=== PATIENT | female | born 1960 | race African-American/Black ===

== ENCOUNTER 2025-09-05 07:09 | Emergency (ER) | payer MEDICARE, MEDICAID ==
[~2025-09-05] VITALS: Ht 160 cm; Wt 88.3 kg
--- NOTE | 2025-09-05 08:09 | DVH ---
CHEST RADIOGRAPH Indication: fall Technique: XY L RIB X RAY Comparison: None FINDINGS: The cardiac silhouette is unremarkable. The lungs demonstrate no pulmonary airspace consolidation. Th e pulmonary vasculature is prominent. There is no pleural effusion. There is no pneumothorax. No radiographic evidence for left rib fracture. IMPRESSION: Pulmonary vasculature congestion.
[2025-09-05] MEDS ORDERED: HYDR-4798 PO (08:25)
--- NOTE | 2025-09-05 08:28 | ED.PDOC ---
Back pain HPI HPI Comments A 65 YEAR OLD FEMALE PRESENTS TO THE ED WITH COMPLAINT OF RIB PAIN. PT STATES SHE WAS RUNNING 2X DAYS PRIOR AND FELL ON THE L SIDE OF HER CHEST. PT STATES SINCE, SHE HAS BEEN HAVING L SIDED RIB PAIN WITH NOTED EXACERBATION OF PAIN WITH MOVEMENT AND TAKING DEEP BREATHS. PT TOOK PAIN MEDICATIONS WITH NO RELIEF OF PAIN. ALSO, PT DID NOT TAKE HER BLOOD PRESSURE MEDICATION THIS MORNING AND HER BLOOD PRESSURE IS HIGH AT THIS TIME. PATIENT DENIES FEVER, CHILLS, SHORTNESS OF BREATH, CHEST PAIN, ABDOMINAL PAIN, NAUSEA, VOMITING, HEADACHE, OR OTHER COMPLAINTS. NO OTHER SYMPTOMS OR MODIFYING FACTORS AT THIS TIME. PATIENT IS ALERT, ORIENTED X 4, AND HAS STEADY GAIT. Chief Complaint: Rib Pain Time Seen by MD: 08:23 Reviewed Notes: Medications, Allergies Allergies: Uncoded Allergies: PENICILLIN (Allergy, Unknown, 09/05/25) Home Meds Active Scripts Hydrocodone-Acetaminophen (Hydrocodone Bitartrate/AC 10-325 mg) 1 Tab Tab, 1 TAB PO BID, #14 TAB Prov:CONSTANCE CAMPOS 09/05/25 Information Source: Patient Mode of Arrival: Ambulatory Brought in by: SELF Timing: Days Duration: Since onset Location of Back pain: Other (LEFT MIDDLE RIBS P[AIN ) Severity: Moderate Prehospital treatment: None Quality: Aching, Cramping, Sharp Onset: Fall Modifying Factors: Movement, Twisting, Breathing Associated signs and symptoms: None Past Medical History PAST MEDICAL HISTORY: HTN Surgical History: Denies all surgeries 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 Hx Family History Family History: Reviewed,noncontributory to illness Social History Smoker: Non-Smoker Alcohol: Denies ETOH Use Drugs: Denies Drug Use Constitutional: denies: chills, diaphoresis, fatigue, fever, malaise, sweats, weakness, others EENTM: denies: blurred vision, double vision, ear bleeding, ear discharge, ear drainage, ear pain, ear ringing, eye pain, eye redness, hearing loss, mouth pain, mouth swelling, nasal discharge, nose bleeding, nose congestion, nose pain, photophobia, tearing, throat pain, throat swelling, voice changes, others Respiratory: denies: cough, hemoptysis, orthopnea, SOB at rest, shortness of breath, SOB with excertion, stridor, wheezing, others Cardiovascular: denies: chest pain, dizzy spells, diaphoresis, Dyspnea on exertion, edema, irregular heart beat, left arm pain, lightheadedness, palpitations, PND, syncope, others Gastrointestinal: denies: abdomen distended, abdominal pain, blood streaked bowels, constipated, diarrhea, dysphagia, difficulty swallowing, hematemesis, melena, nausea, poor appetite, poor fluid intake, rectal bleeding, rectal pain, vomiting, others Genitourinary: denies: abnormal vagina bleeding, burning, dyspareunia, dysuria, flank pain, frequency, hematuria, incontinence, pain, , vagina discharge, urgency, others Neurological: denies: dizziness, fainting, headache, left sided numbness, left sided weakness, numbness, paresthesia, pre-existing deficit, right sided numbness, right sided weakness, seizure, speech problems, tingling, tremors, weakness, others Musculoskeletal: reports: muscle pain (L SIDED RIB PAIN); denies: back pain, gout, joint pain, joint swelling, muscle stiffness, neck pain, others Integumetry: denies: bruises, change in color, change in hair/nails, dryness, laceration, lesions, lumps, rash, wounds, others Allergic/Immunocompromised: denies: Difficulty Healing, Frequent Infections, Hi ves, Itching, others Hematologic/Lymphatic: denies: anemia, blood clots, easy bleeding, easy bruising, swollen glands, others Endocrine: denies: excessive hunger, excessive sweating, excessive thirst, excessive urination, flushing, intolerance to cold, intolerance to heat, unexplained weight gain, unexplained weight loss, others Psychiatric: denies: anxiety, bipolar disorder, depression, hopeless, panic disorder, schizophrenia, sleepless, suicidal, others All Other Systems: Reviewed and Negative Physical Exam General Appearance: No Apparent Distress, Normal HEENT: Normal ENT Inspection, PERRL/EOMI, Pharynx Normal, TMs Normal Neck: Full Range of Motion, Non-Tender, Normal, Normal Inspection Respiratory: Chest Non-Tender, Lungs Clear, No Accessory Muscle Use, No Respiratory Distress, Normal Breath Sounds Cardiovascular: No Edema, No JVD, No Murmur, No Gallop, Normal Peripheral Pulses, Regular Rate/Rhythm Breast Exam: Deferred Gastrointestinal: No Organomegaly, Non Tender, No Pulsatile Mass, Normal Bowel Sounds, Soft Genitalia: Deferred Pelvic: Deferred Rectal: Deferred Extremities: No calf tenderness, Normal capillary refill, Normal inspection, Normal range of motion, Non-tender, No pedal edema Musculoskeletal : Location: Left Extremity Location: Other (L;EFT RIBS ) Apperance: Tenderness (AND MUSCLE SPASM ON LEFT MIDDLE RIBS, NO BONY TENDERNESS, SWELLING AND DEFORMITY. ) Neurologic: Alert, pile header II-XII nml as Tested, No Motor Deficits, Normal Affect, Normal Mood, No Sensory Deficits Cerebellar Function: Normal Reflexes: Normal Skin: Dry, Normal Color, Warm Peripheral Pulses: 2+ carotid (R), 2+ carotid (L) Lymphatic: No Adenopathy Was a procedure done? Was a procedure done?: No Back Pain Differential Dx Differential Diagnosis: Musculoskeletal Pain Other Differential Diagnosis L SIDED RIB PAIN, MUSCLE SPASM, RIB CONTUSION, X-Ray, Labs, Meds, VS Vital Signs Date Time Temp Pulse Resp B/P (MAP) Pulse Ox O2 Delivery O2 Flow Rate FiO2 09/05/25 10:30 160/64 09/05/25 08:52 249/117 09/05/25 07:18 97.9 73 18 218/125 98 97.9 Current Medications Medications (Trade) Dose Ordered Sig/Heladio Route Start Time Stop Time Status Last Admin Acetaminophen/ Hydrocodone Bitart ([place] 10/325MG Tab) 1 tab ONCE ONCE PO 09/05/25 08:45 09/05/25 08:46 DC 09/05/25 08:52 Clonidine HCl (Catapres Tablet) 0.2 mg ONCE ONCE PO 09/05/25 08:45 09/05/25 08:46 DC 09/05/25 08:52 [place] [address] Ph: [phone] DIAGNOSTIC IMAGING Diagnostic Imaging Report : [id number] Signed PATIENT: LANNY ANNACCT: [id number] UNIT: [id number] : 1960 LOC: ER ROOM / BED: / AGE / SEX: 65 / F ADM STATUS: REG ER SERVICE 0734 ORDERING PHYSICIAN: CONSTANCE CAMPOS PROCEDURE(s): LRIBS - L RIB X RAY REASON: fall ORDER NUMBER(s): [id number], ACCESSION NUMBER(s): [id number] CHEST RADIOGRAPH Indication: fall Technique: XY L RIB X RAY Comparison: None FINDINGS: The cardiac silhouette is unremarkable. The lungs demonstrate no pulmonary airspace consolidation. The pulmonary vasculature is prominent. There is no pleural effusion. There is no pneumothorax. No radiographic evidence for left rib fracture. IMPRESSION: Pulmonary vasculature congestion. ATED BY: JO-ANN LERMA MD DICTATED DATE/TIME: 09/05/25810 SIGNED BY: JO-ANN LERMA MD SIGNED DATE/TIME: 09/05/25810 CC: X-Ray, Labs, Meds, VS Comment COURSE: EXTERNAL MEDICAL RECORDS REVIEWED: [NONE] INDEPENDENT HISTORIANS: [NONE] SOCIAL DETERMINANTS OF HEALTH: [NONE] LABS ORDERED: NONE REVIEWED AND INTERPRETED RESULTS: NONE IMAGING ORDERED: L RIB X-RAY TREATMENTS ORDERED: NORCO 10/325 PO AND CLONIDINE 0.2MG PO PROCEDURES PERFORMED: NONE CRITICAL CARE TIME: NONE I HAVE DISCUSSED THE PATIENT WITH THE ATTENDING PHYSICIAN, DR. DWYER, HE AGREES WITH THE PATIENT'S PLAN OF CARE AND DISPOSITION. BASED ON HISTORY OF PRESENT ILLNESS, AND PHYSICAL EXAM, PATIENT WILL BE DISCHARGED HOME. DISCUSSED PLAN FOR DISCHARGE HOME WITH RX [NORCO 10/325*]. MEDICATION WARNINGS GIVEN. SHARED DECISION MAKING: DISCUSSED WITH PATIENT THAT THEIR WORKUP WAS NORMAL. PATIENT INSTRUCTED TO FOLLOW UP WITH PRIMARY CARE PROVIDER IN 1-2 DAYS FOR RE- EVALUATION OF SYMPTOMS. PATIENT VERBALIZES UNDERSTANDING TO RETURN TO ED FOR NEW OR WORSENING SYMPTOMS OR IF FOLLOW UP WITH PCP CANNOT BE OBTAINED. PATIENT FEELS COMFORTABLE GOING HOME AT THIS TIME. ALL QUESTIONS ADDRESSED AT TIME OF DISCHARGE. Time of 1ST Reevaluation: 10:32 Reevaluation 1ST: Improved Patient Education/Counseling: Diagnosis, Treatment, Need For Follow Up Family Education/Counseling: Diagnosis, Treatment, No Family Present Medical Screening: No EMC Exist At This Time SEPSIS Sepsis Screen Date sepsis recognized/suspect: Sep 05, 2025 Time Sepsis recognized/suspect: 07 Recent Procedure: No On Antibiotic Therapy: No Respiratory Rate >20: No Heart Rate >90: No Temp<36 C (96.8 F) or >38.3 C: No SBP <90 or MAP <65 mmHG: No New Acute Mental Status Change: No Is the patient on CPAP, BIPAP,: No Physician Orders L Rib X Ray (09/05/25 07:34) Vital Signs Date Time Temp Pulse Resp B/P (MAP) Pulse Ox O2 Delivery O2 Flow Rate FiO2 09/05/25 10:30 160/64 09/05/25 08:52 249/117 09/05/25 07:18 97.9 73 18 218/125 98 97.9 Medications Medications Dose Ordered Sig/Heladio Route Start Time Stop Time Status Last Admin Dose Admin Acetaminophen/ Hydrocodone Bitart 1 tab ONCE ONCE PO 09/05/25 08:45 09/05/25 08:46 DC 09/05/25 08:52 Clonidine HCl 0.2 mg ONCE ONCE PO 09/05/25 08:45 09/05/25 08:46 DC 09/05/25 08:52 Departure 1 Departure Time of Disposition: 10:32 Impression: Primary Impression: Intercostal muscle strain Qualified Codes: S29.011A - Strain of muscle and tendon of front wall of thorax, initial encounter Additional Impressions: Status post fall Uncontrolled hypertension Noncompliance Disposition: 01 HOME / SELF CARE / HOMELESS Condition: Stable Additional Instructions: INSTRUCTIONS: FOLLOW-UP WITH PCP IN 1 TO 2 DAYS. TAKE MEDICATIONS PRESCRIBED. RETURN TO ED FOR ANY NEW OR WORSENING SYMPTOMS. e-Prescriptions Hydrocodone-Acetaminophen (Hydrocodone Bitartrate/AC 10-325 mg) 1 Tab Tab 1 TAB PO BID, #14 TAB Prov: CONSTANCE CAMPOS 09/05/25 Discharged With: Self, Relative Critical Care Note Critical Care Time?: No Stability Stability form required: No Heart Score Heart Score: Heart Score Response (Comments) Value History N/A 0 EKG N/A 0 Age N/A 0 Risk Factors N/A 0 Troponin N/A 0 Total 0 I personally scribed for CONSTANCE CAMPOS ([email or web address]) on 09/05/25 at 08:28. Electronically submitted by Raymundo Nichols [email or web address]). I personally scribed for CONSTANCE CAMPOS ([email or web address]) on 09/05/25 at 08:30. Electronically submitted by Raymundo Nichols ([email or web address]). I personally scribed for CONSTANCE CAMPOS ([email or web address]) on 09/05/25 at 10:18. Electronically submitted by Raymundo Nichols ([email or web address]). CONSTANCE CAMPOS Sep 05, 2025 08:28
[2025-09-05] MEDS: HYDROcodone-ACET 10/325MG TAB PO ONE (08:52)
[2025-09-05 10:31] VITALS: BP 160/64; PULSE 54; RESP 18; TEMP 98.1; O2SAT 95
== END 2025-09-05 10:32 | disposition home or self-care (01) ==
LOC: ER 07:09
DX: S29.011A Strain of muscle and tendon of front wall of thorax, initial encounter (principal); I10 Essential (primary) hypertension; Z91.199 Patient's noncompliance with other medical treatment and regimen due to unspecified reason; Z88.0 Allergy status to penicillin; Z79.899 Other long term (current) drug therapy; Z79.891 Long term (current) use of opiate analgesic; W19.XXXA Unspecified fall, initial encounter; Y93.89 Activity, other specified; Y92.89 Other specified places as the place of occurrence of the external cause; Y99.8 Other external cause status
CPT/HCPCS: 71101

== ENCOUNTER 2025-10-13 23:11 | Inpatient (IN) | payer MEDICARE, MEDICAID ==
[~2025-10-13] VITALS: Ht 160 cm; Wt 92.2 kg
[~2025-10-13 23:11] MED LIST: HYDR-4798 PO
--- NOTE | 2025-10-13 23:19 | ECG ---
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
--- NOTE | 2025-10-13 23:45 | DVH ---
CHEST RADIOGRAPH Indication: CP Technique: Single frontal view of the chest was obtained COMPARISON: XY L RIB X RAY on DOS: 09/05/25 FINDINGS: Lines and Tubes: None Lungs: Clear Pleura: No effusion. No pneumothorax. Cardiomediastinal contours: Unremarkable Bones: Unremarkable IMPRESSION: 1. No acute disease.
[2025-10-13 23:52] LABS: Hematocrit 48.5 % (36.0-46.0); Hemoglobin 16.4 g/dL (12.2-16.2); Mean Corpuscular Hemoglobin 28.2 pg (28.0-32.0); Mean Corpuscular Volume 83.7 fL (80.0-100.0); Nucleated Red Blood Cells % 0.3 %
[2025-10-13 23:55] VITALS: PULSE 59; RESP 20; O2SAT 99
--- NOTE | 2025-10-13 23:56 | ED.PDOC ---
History of Present Illness HPI Comments 65-year-old female is brought in by ambulance from private residence for chief complaint of multiple episodes of nausea and vomiting. Patient endorses on sudden and unprovoked onset of symptoms 1-2 hours prior to ED arrival. She reports associated diffused chest heaviness and feeling weak. History of similar symptoms in the past due to her hiatal hernia. Additional pertinent history of hypertension - on Metoprolol. Patient admits to being compliant with and taking her medication today. She denies having any abdominal surgery in the past or history of recent spicy food consumption. She denies having any bloody or bilious vomitus, shortness of breath, fever, cough, headache, dizziness, weakness, numbness, falls, or further acute symptoms. Upon arrival to ED, patient was found with a blood pressure of 253/116. 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, Medications, Allergies Allergies: Uncoded Allergies: PENICILLIN (Allergy, Unknown, 09/05/25) Home Meds Active Scripts Hydrocodone-Acetaminophen (Hydrocodone Bitartrate/AC 10-325 mg) 1 Tab Tab, 1 TAB PO BID, #14 TAB Prov:CONSTANCE CAMPOS 09/05/25 Information Source: Patient, Emergency Med Personnel Mode of Arrival: EMS Severity: Moderate Timing: Hours Duration: Since onset Prehospital treatment: 12 Lead EKG, Access Services Assistant Past Medical History PAST MEDICAL HISTORY: HTN Past Medical History (Other): History of hernia Surgical History: Denies all surgeries PROGRAM DIRECTOR/AIR PERSONALITY History: Denies all PROGRAM DIRECTOR/AIR 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 Hx Family History Family History: Reviewed,noncontributory to illness Social History Smoker: Non-Smoker Alcohol: Denies ETOH Use Drugs: Denies Drug Use All Other Systems: Reviewed and Negative (Comprehensive review of systems are negative unless otherwise stated in HPI) Physical Exam General Appearance: No Apparent Distress, Obese, Other (Uncomfortable appearing) HEENT: Normal ENT Inspection, Pharynx Normal, TMs Normal Neck: Full Range of Motion, Non-Tender, Normal, Normal Inspection Respiratory: Chest Non-Tender, Lungs Clear, No Accessory Muscle Use, No Respiratory Distress, Normal Breath Sounds Cardiovascular: No Edema, No JVD, No Murmur, No Gallop, Normal Peripheral Pulses, Regular Rate/Rhythm Breast Exam: Deferred Gastrointestinal: No Organomegaly, Non Tender, No Pulsatile Mass, Normal Bowel Sounds, Soft, Other (Actively vomiting) Genitalia: Deferred Pelvic: Deferred Rectal: Deferred Extremities: No calf tenderness, Normal capillary refill, Normal inspection, Normal range of motion, Non-tender, No pedal edema Musculoskeletal : Apperance: Normal Neurologic: Alert, correctional manager II-XII nml as Tested, No Motor Deficits, Normal Affect, Normal Mood, No Sensory Deficits Cerebellar Function: Normal Reflexes: Normal Skin: Dry, Normal Color, Warm Lymphatic: No Adenopathy Was a procedure done? Was a procedure done?: No EKG EKG : Pulse Rate (adult): 65 [place]: Normal Cardiac Rhythm: NSR Block: None Hypertrophy: None ST: Normal Differential Dx Considerations may include: Gastritis, gastroenteritis, GERD, UT, PE, ACS, angina, anxiety, hypertensive emergency, hypertension-primary, electrolyte imbalance, dehydration, among others X-Ray, Labs, Meds, VS Vital Signs Date Time Temp Pulse Resp B/P (MAP) Pulse Ox O2 Delivery O2 Flow Rate FiO2 10/14/25 00:40 227/99 (141) 10/14/25 00:10 240/104 10/14/25 00:04 54 10/14/25 00:04 54 10/13/25 23:55 59 20 99 Room Air* 0 21 10/13/25 23:29 61 15 238/84 (135) 98 10/13/25 23:22 98.1 60 22 253/116 99 98.1 10/13/25 23:12 65 Lab Test 10/14/25 00:35 10/13/25 23:35 Range/Units Troponin I High Sensitivity Pending 5 </=34 ng/L White Blood Count 7.5 4.4-10.8 10^3/uL Red Blood Count 5.79 H 4.0-5.20 10^6/uL Hemoglobin 16.4 H 12.2-16.2 g/dL Hematocrit 48.5 H 36.0-46.0 % Mean Corpuscular Volume 83.7 80.0-100.0 fL Mean Corpuscular Hemoglobin 28.2 28.0-32.0 pg Mean Corpuscular Hemoglobin Concent 33.7 32.0-36.0 g/dL Red Cell Distribution Width 15.5 H 11.8-14.3 % Platelet Count 223 140-450 10^3/uL Mean Platelet Volume 9.3 6.9-10.8 fL Neutrophils (%) (Auto) 63.7 37.0-80.0 % Lymphocytes (%) (Auto) 29.5 10.0-50.0 % Monocytes (%) (Auto) 6.0 0.0-12.0 % Eosinophils (%) (Auto) 0.3 0.0-7.0 % Basophils (%) (Auto) 0.5 0.0-2.0 % Neutrophils # (Auto) 4.8 1.6-8.6 10 ^3/uL Lymphocytes # (Auto) 2.2 0.4-5.4 10 ^3/uL Monocytes # (Auto) 0.5 0-1.3 10 ^3/uL Eosinophils # (Auto) 0 0-0.8 10 ^3/uL Basophils # (Auto) 0 0-0.2 10 ^3/uL Nucleated Red Blood Cells 0.3 % Sodium Level 142 136-145 mmol/L Potassium Level 3.7 3.5-5.1 mmol/L Chloride Level 104 98-107 mmol/L Carbon Dioxide Level 23 20-31 mmol/L Anion Gap 15 5-15 Blood Urea Nitrogen 9 9-23 mg/dL Creatinine 0.98 0.550-1.02 mg/dL Glomerular Filtration Rate Calc 63 >90 mL/min BUN/Creatinine Ratio 9.2 L 10.0-20.0 Serum Glucose 133 H 74-106 mg/dL Calcium Level 9.8 8.7-10.4 mg/dL Total Bilirubin 0.4 0.2-1.0 mg/dL Aspartate Amino Transferase (AST) 28 13-40 U/L Alanine Aminotransferase (ALT) 17 7-40 U/L Alkaline Phosphatase 124 H 46-116 U/L B-Type Natriuretic Peptide 200.47 0-100 pg/mL Total Protein 8.2 5.7-8.2 g/dL Albumin 4.8 3.2-4.8 g/dL Lipase 37 12-53 U/L Current Medications Medications (Trade) Dose Ordered Sig/Heladio Route Start Time Stop Time Status Last Admin Metoclopramide HCl (Reglan Injection) 10 mg ONCE ONCE IV 10/13/25 23:45 10/13/25 23:47 DC 10/14/25 00:10 Hydralazine HCl (Apresoline Injection) 10 mg ONCE ONCE IV 10/13/25 23:45 10/13/25 23:47 DC 10/14/25 00:10 Pantoprazole Sodium (Protonix) 40 mg ONCE ONCE IV 10/14/25 00:30 10/14/25 00:31 DC 10/14/25 00:[address] [address] Ph: [phone] DIAGNOSTIC IMAGING Diagnostic Imaging Report : [id number] Signed PATIENT: LANNY ANN ACCT: [id number] UNIT: [id number] : 1960 LOC: ER ROOM / BED: / AGE / SEX: 65 / F ADM STATUS: REG ER SERVICE 19 ORDERING PHYSICIAN: EDWIN COSBY MD PROCEDURE(s): CXR1 - CHEST XRAY 1 VIEW REASON: CP ORDER NUMBER(s): [id number], ACCESSION NUMBER(s): [id number] CHEST RADIOGRAPH Indication: CP Technique: Single frontal view of the chest was obtained COMPARISON: XY L RIB X RAY on DOS: 09/05/25 FINDINGS: Lines and Tubes: None Lungs: Clear Pleura: No effusion. No pneumothorax. Cardiomediastinal contours: Unremarkable Bones: Unremarkable IMPRESSION: 1. No acute disease. ATED BY: RENNY KNIGHT MD DICTATED DATE/TIME: 10/13/252342 SIGNED BY: RENNY KNIGHT MD SIGNED DATE/TIME: 10/13/252342 CC: X-Ray, Labs, Meds, VS Comment Patient with history of hypertension, presents with chest pain, nausea, vomiting, uncontrolled hypertension. Patient is significantly hypertensive on arrival, her neuro exam is nonfocal. Chest x-ray to evaluate for evidence of pneumonia, pneumothorax, CHF EKG and troponin to evaluate for evidence of arrhythmia, ACS, AMI Lab work (CBC, BMP) to evaluate for evidence of severe anemia, electrolyte abnormality including hypokalemia, hyperkalemia, hypernatremia, hyponatremia, hyperglycemia, hypoglycemia, etc. IV Zofran IV hydralazine for blood pressure control Re-evaluate Social determinant surveillance affecting care: Social determinants of health that will affect the patient's care: Poor health literacy (additional time provided an explanation) Poor access to outpatient care/followup (provided outpatient resources) Time of 1ST Reevaluation: 00:45 Reevaluation 1ST: Unchanged Patient Education/Counseling: Diagnosis, Treatment, Other (Need for admission) Family Education/Counseling: No Family Present SEPSIS Sepsis Screen Date sepsis recognized/suspect: Oct 13, 2025 Time Sepsis recognized/suspect: 2328 Recent Procedure: No On Antibiotic Therapy: No Respiratory Rate >20: Yes Heart Rate >90: No Temp<36 C (96.8 F) or >38.3 C: No SBP <90 or MAP <65 mmHG: No New Acute Mental Status Change: No Is the patient on CPAP, BIPAP,: No Physician Orders Electrocardigram (10/14/25 02:15) Chest Xray 1 View (10/13/25 23:20) Troponin-I Hs (10/14/25 00:33) Troponin-I Hs (10/14/25 02:33) Nicardipine 20mg/200ml (Cardene Iv) (10/14/25 01:00) Vital Signs Date Time Temp Pulse Resp B/P (MAP) Pulse Ox O2 Delivery O2 Flow Rate FiO2 10/14/25 00:40 227/99 (141) 10/14/25 00:10 240/104 10/14/25 00:04 54 10/14/25 00:04 54 10/13/25 23:55 59 20 99 Room Air* 0 21 10/13/25 23:29 61 15 238/84 (135) 98 10/13/25 23:22 98.1 60 22 253/116 99 98.1 10/13/25 23:12 65 Laboratory Tests Test 10/13/25 23:35 White Blood Count 7.5 10^3/uL (4.4-10.8) Medications Medications Dose Ordered Sig/Heladio Route Start Time Stop Time Status Last Admin Dose Admin Hydralazine HCl 10 mg ONCE ONCE IV 10/13/25 23:45 10/13/25 23:47 DC 10/14/25 00:10 Metoclopramide HCl 10 mg ONCE ONCE IV 10/13/25 23:45 10/13/25 23:47 DC 10/14/25 00:10 Pantoprazole Sodium 40 mg ONCE ONCE IV 10/14/25 00:30 10/14/25 00:31 DC 10/14/25 00:41 Departure 1 Departure Time of Disposition: 01:05 (On reassessment, patient persistently hypotensive despite IV antihypertensives. Labs unremarkable, however patient is still complaining of chest pain. We will start on Cardene drip and admitted to the hospital for further management of hypertensive urgency.) Impression: Primary Impression: Acute chest pain Additional Impressions: Hypertensive urgency Acute nausea with nonbilious vomiting Acute epigastric pain Disposition: ADMITTED INPATIENT Admit to: [facility] Condition: Serious Critical Care Note Critical Care Time?: Yes (45 min-critical care time only) Critical care comment: Hypertensive emergency Stability Stability form required: No Heart Score Heart Score: Heart Score Response (Comments) Value History Moderate Suspicious 1 EKG Normal 0 Age >65 2 Risk Factors 1 or 2 risk factors 1 Troponin Normal limit 0 Total 4 I personally scribed for EDWIN COSBY MD ([email or web address]) on 10/13/25 at 23:56. Electronically submitted by Chele Flores [email or web address]). EDWIN COSBY MD Oct 13, 2025 23:56
[2025-10-14] VITALS (52 sets, daily range): BP systolic 126–176; BP diastolic 52–100; PULSE 61–155; RESP 10–75; TEMP 98–99.3; O2SAT 92–99
[2025-10-14] MEDS: METOCLOPRAMIDE HCL 5MG/ml INJ 2ml VIAL IV ONE (00:10)
[2025-10-14] MEDS: hydrALAZINE HCL 20 MG/ML VL IV ONE (00:10)
[2025-10-14 00:12] LABS: Alanine Aminotransferase 17 U/L (7-40); Albumin 4.8 g/dL (3.2-4.8); Alkaline Phosphatase 124 U/L (46-116); Anion Gap 15 (5-15); BUN/Creatinine Ratio 9.2 (10.0-20.0); Blood Urea Nitrogen 9 mg/dL (9-23); Calcium 9.8 mg/dL (8.7-10.4); Carbon Dioxide 23 mmol/L (20-31); Chloride 104 mmol/L (98-107); Glucose 133 mg/dL (74-106); Lipase 37 U/L (12-53); Potassium 3.7 mmol/L (3.5-5.1); Sodium 142 mmol/L (136-145); Total Protein 8.2 g/dL (5.7-8.2)
[2025-10-14 00:13] LABS: Bilirubin, Total 0.4 mg/dL (0.2-1.0)
--- NOTE | 2025-10-14 00:30 | ECG ---
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
[2025-10-14] MEDS: PANTOPRAZOLE 40 MG/10 ML VIAL INJ IV ONE (00:41)
[2025-10-14] MEDS: MORPHINE SULFATE INJ 2 MG/ml SYRG IM ONE (01:45)
--- NOTE | 2025-10-14 02:16 | ECG ---
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
--- NOTE | 2025-10-14 02:26 | DVH ---
INDICATION: RUQ pain TECHNIQUE: Multiple real-time sonographic images were obtained of the right upper quadrant. COMPARISON: None FINDINGS: The liver demonstrates normal homogeneous echotexture without focal mass lesions. The liver measures 13.2 cm. Normal hepatopetal portal venous flow identified. No evidence of pleural effusion or abdominal ascites. There is no intrahepatic or extrahepatic ductal dilatation. The common duct measures 0.4 cm. The gallbladder is without evidence of stone or sludge. The gallbladder wall measures 0.2 cm and is within normal limits. Negative sonographic fitzgerald's sign. The right kidney measures 9.2 cm. The right kidney is normal in contour, size, and shape. The echogenicity is normal. There is no hydronephrosis. The pancreas is not well visualized due to overlying bowel gas. IMPRESSION: 1. No sonographic evidence of cholelithiasis or acute cholecystitis.
--- NOTE | 2025-10-14 03:06 | DVHHPRES ---
History of Present Illness Resident Creating Document: SHAWN SABILLON RESIDENT History of Present Illness Mahsa Millard, 65-year-old female with past medical history of hypertension, unspecified hernia? presented to the ER with the complaints of vomiting and altered mental status. The patient was lying in bed at 5:00 p.m., then she started vomiting. Which was not associated with abdominal pain. Reports having headache for the same duration. The patient also complains of intractable back pain. The patient is experiencing urinary frequency today. He reports having chest heaviness. She also shortness of breathe which improves on lying down. She endorsed hiccups during history taking. On admission the patient's blood pressure was 233/96 and pulse was 54. Her troponin was elevated in 90s. She pulled out her IV lines 2 times in the ER. She was given morphine for back pain control. She does not have a lift manager or PCP. She could not recall her home medications. Past medical history: As above, patient told the nurse she has hernia Past surgical history: None Allergies: Penicillin causes convulsion Smokin pack a week for 50 years, actively smoking Drugs: Quit Marijuana 50 years ago. 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 and PCP: None Code status: DNR DNI (however, patient was confused police revisit code status) Review of Systems Allergies: Uncoded Allergies: PENICILLIN (Allergy, Unknown, 09/05/25) Medications Current Medications Medications Dose Ordered Sig/Heladio Route Start Time Stop Time Status Last Admin Dose Admin Nicardipine/ Sodium Chloride 200 ml @ 50 mls/hr Q4H IV 10/14/25 01:00 10/14/25 02:25 50 MLS/HR Exam Vital Signs Vital Signs Date Time Temp Pulse Resp B/P (MAP) Pulse Ox O2 Delivery O2 Flow Rate FiO2 10/14/25 02:35 210/94 10/14/25 02:14 83 10/14/25 01:45 20 10/14/25 01:40 98 10/13/25 23:55 Room Air* 0 21 10/13/25 23:22 98.1 98.1 Exam Pt is lying on bed General Appearance: Alert, Oriented X2, Cooperative, Mild distress HEENT: Atraumatic, Mucous membranes moist/pink Respiratory: Clear to auscultation, Normal air movement, No added sounds Cardiovascular: Regular rate, Normal S1, Normal S2, No murmurs Abdominal/ : Active bowel sounds, Soft, no distention, no tenderness Extremities: No edema, Normal pulses, No tenderness/swelling Skin: No Significant rash, except past surgical scars Neuro: Normal speech, sensorimotor deficits none Psych/Mental Status: Mental status NL, Mood NL Nurse was there as training analyst during examination Labs/Xrays Labs Test 10/14/25 02:20 10/13/25 23:35 Range/Units White Blood Count 7.5 4.4-10.8 10^3/uL Red Blood Count 5.79 H 4.0-5.20 10^6/uL Hemoglobin 16.4 H 12.2-16.2 g/dL Hematocrit 48.5 H 36.0-46.0 % Mean Corpuscular Volume 83.7 80.0-100.0 fL Mean Corpuscular Hemoglobin 28.2 28.0-32.0 pg Mean Corpuscular Hemoglobin Concent 33.7 32.0-36.0 g/dL Red Cell Distribution Width 15.5 H 11.8-14.3 % Platelet Count 223 140-450 10^3/uL Mean Platelet Volume 9.3 6.9-10.8 fL Neutrophils (%) (Auto) 63.7 37.0-80.0 % Lymphocytes (%) (Auto) 29.5 10.0-50.0 % Monocytes (%) (Auto) 6.0 0.0-12.0 % Eosinophils (%) (Auto) 0.3 0.0-7.0 % Basophils (%) (Auto) 0.5 0.0-2.0 % Neutrophils # (Auto) 4.8 1.6-8.6 10 ^3/uL Lymphocytes # (Auto) 2.2 0.4-5.4 10 ^3/uL Monocytes # (Auto) 0.5 0-1.3 10 ^3/uL Eosinophils # (Auto) 0 0-0.8 10 ^3/uL Basophils # (Auto) 0 0-0.2 10 ^3/uL Nucleated Red Blood Cells 0.3 % Sodium Level 142 136-145 mmol/L Potassium Level 3.7 3.5-5.1 mmol/L Chloride Level 104 98-107 mmol/L Carbon Dioxide Level 23 20-31 mmol/L Anion Gap 15 5-15 Blood Urea Nitrogen 9 9-23 mg/dL Creatinine 0.98 0.550-1.02 mg/dL Glomerular Filtration Rate Calc 63 >90 mL/min BUN/Creatinine Ratio 9.2 L 10.0-20.0 Serum Glucose 133 H 74-106 mg/dL Calcium Level 9.8 8.7-10.4 mg/dL Total Bilirubin 0.4 0.2-1.0 mg/dL Aspartate Amino Transferase (AST) 28 13-40 U/L Alanine Aminotransferase (ALT) 17 7-40 U/L Alkaline Phosphatase 124 H 46-116 U/L B-Type Natriuretic Peptide 200.47 0-100 pg/mL Total Protein 8.2 5.7-8.2 g/dL Albumin 4.8 3.2-4.8 g/dL Lipase 37 12-53 U/L SEPSIS Sepsis Screen Date sepsis recognized/suspect: Oct 14, 2025 Time Sepsis recognized/suspect: 24 Recent Procedure: No On Antibiotic Therapy: No Respiratory Rate >20: No Heart Rate >90: No Temp<36 C (96.8 F) or >38.3 C: No SBP <90 or MAP <65 mmHG: No New Acute Mental Status Change: No Is the patient on CPAP, BIPAP,: No Physician Orders Chest Xray 1 View (10/13/25 23:20) Troponin-I Hs (10/14/25 02:33) Nicardipine 20mg/200ml (Cardene Iv) (10/14/25 01:00) Abdomen Limited (10/14/25 01:32) Admit (10/14/25 03:01) Allergies (10/14/25 03:01) Complete Blood Count (10/15/25 04:00) Comprehensive Metabolic Panel (10/15/25 04:00) Cardiac Diet-2gna,Lofat,Lochol (10/14/25 Breakfast) Acetaminophen Tablet (Tylenol Tablet) (10/14/25 03:15) Sequential Compression Device (10/14/25 ) Nitroglycerin Sublingual (Ntrostat Subli (10/14/25 03:15) Oxygen By Nasal Cannula (10/14/25 03:01) Stat Ekg For Chest Pain (10/14/25 03:01) Notify Of Changes From Base (10/14/25 03:01) Production Ski Repairer For 24 Hours (10/14/25 03:01) Emergency Dysrhythmia Protocol (10/14/25 03:01) Rhythm Strips Once Every Shift (10/14/25 03:01) Vital Signs Date Time Temp Pulse Resp B/P (MAP) Pulse Ox O2 Delivery O2 Flow Rate FiO2 10/14/25 02:35 210/94 10/14/25 02:30 219/94 10/14/25 02:25 224/102 10/14/25 02:14 83 10/14/25 01:45 83 20 169/61 10/14/25 01:40 81 18 169/61 (97) 98 10/14/25 01:20 207/76 10/14/25 01:09 233/96 10/14/25 00:40 227/99 (141) 10/14/25 00:10 240/104 10/14/25 00:04 54 10/14/25 00:04 54 10/13/25 23:55 59 20 99 Room Air* 0 21 10/13/25 23:29 61 15 238/84 (135) 98 10/13/25 23:22 98.1 60 22 253/116 99 98.1 10/13/25 23:12 65 Laboratory Tests Test 10/13/25 23:35 White Blood Count 7.5 10^3/uL (4.4-10.8) Medications Medications Dose Ordered Sig/Heladio Route Start Time Stop Time Status Last Admin Dose Admin Hydralazine HCl 10 mg ONCE ONCE IV 10/13/25 23:45 10/13/25 23:47 DC 10/14/25 00:10 10 MG Metoclopramide HCl 10 mg ONCE ONCE IV 10/13/25 23:45 10/13/25 23:47 DC 10/14/25 00:10 10 MG Morphine Sulfate 2 mg ONCE ONCE IM 10/14/25 01:30 10/14/25 01:31 DC 10/14/25 01:45 2 MG Nicardipine/ Sodium Chloride 200 ml @ 50 mls/hr Q4H IV 10/14/25 01:00 10/14/25 02:25 50 MLS/HR Pantoprazole Sodium 40 mg ONCE ONCE IV 10/14/25 00:30 10/14/25 00:31 DC 10/14/25 00:41 40 MG Assessment/Plan Assessment/Plan Hypertensive emergency Acute metabolic encephalopathy -CXR: No acute findings -head CT: No acute findings. -IV nicardipine drip -IV hydralazine -metoclopramide Chest pain rule out ACS EKG: No ischemic changes Troponins trending down Abdominal pain Single organ ultrasound: No acute finding History of hernia? Not specified -further workup recommended GI prophylaxis: Pantoprazole DVT prophylaxis: Lovenox Diet: Cardiac Goals of care discussed with the patient for more than 27 minutes: Full code status Case discussed with Dr. Fitzgerald, patient and RN Plan discussed with: Patient, Other (RN) My Orders Orders - RIDGE,SHAWN RESIDENT Procedure Category Date Status Time Admit ADMIT 10/14/25 Transmitted 03:01 Allergies SHLOMO 10/14/25 Transmitted 03:01 Complete Blood Count LAB 10/15/25 Verified 04:00 Comprehensive LAB 10/15/25 Verified Metabolic Panel 04:00 Cardiac DIET 10/14/25 Transmitted Diet-2gna,Lofat,Lochol Breakfast Acetaminophen Tablet PHA 10/14/25 Verified (Tylenol Tablet) 03:15 Sequential [facility] 10/14/25 Verified Compression Device Nitroglycerin PHA 10/14/25 Verified Sublingual (Ntrostat 03:15 Oxygen By Nasal RT 10/14/25 Verified Cannula 03:01 Stat Ekg For Chest [facility] 10/14/25 Verified Pain 03:01 Notify Md Of Changes [facility] 10/14/25 Verified From Base 03:01 Production Ski Repairer For [facility] 10/14/25 Verified 24 Hours 03:01 Emergency Dysrhythmia [facility] 10/14/25 Verified Protocol 03:01 Rhythm Strips Once [facility] 10/14/25 Verified Every Shift 03:01 Visit Coding STANDARD RES Billing Provider: ABBE FITZGERALD MD Date of Service if different f: Oct 14, 2025 SHAWN SABILLON RESIDENT Oct 14, 2025 03:05
[2025-10-14] MEDS ORDERED: NITROGLYCERIN 0.4 MG SL TAB SL PRN (03:15)
--- NOTE | 2025-10-14 04:01 | DVH ---
EXAM: CT HEAD WITHOUT CONTRAST INDICATION: Hypertensive emergency, rule out hemorrhagic stroke TECHNIQUE: CT of the head without intravenous contrast. Radiation Dose : 1. Head: CT Dose: CTDI volume is 61.9 mGy. Dose-length product is 868.27 mGy*cm The dose indicators for CT are the volume Computed Tomography (CT) Dose Index (CTDIvol) and the Dose Length Product (DLP), and are measured in units of mGy and mGy-cm, respectively. These indicators are not patient dose, but values generated from the CT scanner acquisition factors. The report includes radiation exposure data for exposures received during this examination. COMPARISON: None FINDINGS: There is no evidence of acute intracranial hemorrhage, extra-axial collection, mass effect, midline shift, herniation or hydrocephalus. The ventricles, sulci and cisterns are age appropriate. The orozco-white differentiation is intact. Patchy periventricular and subcortical white matter hypoattenuation is nonspecific but may be related to small vessel ischemic disease. The visualized paranasal sinuses and mastoid air cells are clear. The surrounding soft tissues and osseous structures are unremarkable. IMPRESSION: 1. No acute intracranial abnormality. Radiation optimization: All CT scans at this facility use at least one of these dose optimization techniques: automated exposure control mA and/or kV adjustment per patient size (includes targeted exams where dose is matched to clinical indication) or iterative reconstruction.
[2025-10-14] MEDS: HYDROcodone-ACET 5/325MG TAB PO ONE (04:40)
[2025-10-14] MEDS: HYDROcodone-ACET 5/325MG TAB PO PRN (04:44)
[2025-10-14] MEDS: MORPHINE SULFATE INJ 2 MG/ml SYRG IV ONE (07:49)
[2025-10-14] MEDS: SODIUM CHLORIDE 0.9% 500 ML IV ONE ×2 (08:44→12:30)
[2025-10-14] MEDS: PANTOPRAZOLE 40 MG/10 ML VIAL INJ IV SCH (09:37)
[2025-10-14 10:13] LABS: Anion Gap 15 (5-15); Carbon Dioxide 24 mmol/L (20-31); Chloride 103 mmol/L (98-107); Potassium 3.7 mmol/L (3.5-5.1); Sodium 142 mmol/L (136-145)
[2025-10-14 10:14] LABS: Calcium 9.7 mg/dL (8.7-10.4)
[2025-10-14 10:19] LABS: BUN/Creatinine Ratio 9.1 (10.0-20.0)
[2025-10-14 10:20] LABS: Blood Urea Nitrogen 9 mg/dL (9-23); Glucose 144 mg/dL (74-106); Magnesium 1.9 mg/dL (1.6-2.6)
[2025-10-14] MEDS: HYDROmorphone HCL 2 MG/ML VL/or syr IV ONE (10:28)
[2025-10-14] MEDS: SODIUM CHLORIDE 0.9% 1,000 ML IV ONE ×2 (10:49→18:54)
[2025-10-14] MEDS: POTASSIUM CHLORIDE 20 MEQ, LIDOCAINE 1% (LOCAL ANESTH.) 2 ML in SODIUM CHL 0.9% 100 ML IV ONE (10:52)
[2025-10-14 11:11] LABS: Hematocrit 46.9 % (36.0-46.0); Hemoglobin 15.9 g/dL (12.2-16.2); Mean Corpuscular Hemoglobin 28.0 pg (28.0-32.0); Mean Corpuscular Volume 82.8 fL (80.0-100.0); Nucleated Red Blood Cells % 0.3 %
[2025-10-14] MEDS: LISINOPRIL 5 MG TAB PO ONE (11:35)
--- NOTE | 2025-10-14 11:50 | CONS ---
Pharmacy Clinical Information: HEPARIN PROTOCOL FOR ACS APTT PENDING AT 11:48 ON 10/14/25 BOLUS 4000 UNITS/HR X1 INITIAL RATE 1000 UNITS/HR OR 10 ML/HR NEXT APTT AT 18:00 ON 10/14/25 RX ENDER READ BACK AND CONFIRMED PER RX PROTOCOL AMALIA QUESADA PHARMACIST Oct 14, 2025 11:50
[2025-10-14 12:00] LABS: INR 1.06 (0.9-1.15); Partial Thromboplastin Time 26.4 SEC (24.5-34.5); Prothrombin Time 11.2 sec (9.3-11.8)
[2025-10-14] MEDS: HEPARIN SODIUM (PORCINE) 5000 UNITS/ML 1ML VIAL IV ONE (12:27)
[2025-10-14] MEDS: HEPARIN DRIP/D5W 100UNITS/ML 250 ML IV SCH ×2 (12:29→22:15)
--- NOTE | 2025-10-14 13:48 | DVHINCON2 ---
Date Seen: Oct 14, 2025 Referring Physician MD Luis resident Reason for Consultation NSTEMI History of Present Illness This is a 65-year-old female patient who presents to the emergency room with chief complaint of nausea, vomiting, chest pain, and dizziness. The patient reports that symptoms began 1 hour prior to emergency room arrival. She describes the chest pain as unprovoked, intermittent, cramping in nature, located to the left and right inframammary areas with radiation to her upper back. Associated symptoms include nausea, vomiting, dizziness, and shortness of breath. She came to the emergency room for further evaluation. Upon emergency room arrival, the patient's blood pressure was noted to reach as high as 253/116. The patient was initiated on a nicardipine drip. A twelve lead electrocardiogram done in the emergency room reveals normal sinus rhythm with baseline wander in multiple leads. A repeat twelve lead electrocardiogram was done today 10/14/2025 while in the intensive care unit and reveals a sinus tachycardia with global ST segment depression (likely repolarization) and prolonged QTc interval. Initial troponin level of 5ng/L with up trend and peak level at 80ng/L. Significant past medical history includes hypertension, anxiety, and obesity. The patient denies any previous cardiac workup. Past Medical History Past medical history reviewed. No other significant than mentioned above. Past Surgical History Denies any previous surgeries Family History Family history reviewed. 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 Social alcohol use Allergies: Uncoded Allergies: PENICILLIN (Allergy, Unknown, 09/05/25) Home Meds Active Scripts Hydrocodone-Acetaminophen (Hydrocodone Bitartrate/AC 10-325 mg) 1 Tab Tab, 1 TAB PO BID, #14 TAB Prov:ANDRESCONSTANCE HUNTER 09/05/25 Reported Medications Metoprolol Tartrate (Metoprolol Tartrate) 100 Mg Tab, 100 MG PO DAILY for 30 Days, MG 10/14/25 Escitalopram Oxalate (Lexapro) 20 Mg Tab, 20 MG PO DAILY, TAB 10/14/25 Clonazepam (Klonopin) 0.5 Mg Tab, 2 MG PO DAILY, TAB 10/14/25 Quetiapine Fumerate (Seroquel Xr) 200 Mg Tab, 600 MG PO DAILY for 30 Days, MG 10/14/25 Home Meds Home medications reviewed. Current Medications Current Medications Medications (Trade) Dose Ordered Sig/Heladio Route PRN Reason Start Time Stop Time Status Last Admin Nicardipine/ Sodium Chloride 200 ml @ 50 mls/hr Q4H IV 10/14/25 01:00 10/14/25 07:57 DC 10/14/25 07:40 Acetaminophen (Tylenol Tablet) 650 mg Q6HP PRN PO PAIN SCALE 1-3 OR TEMP>100.4 10/14/25 03:15 Nitroglycerin (Ntrostat Sublingual) 0.4 mg Q5MINP PRN SL FOR CHEST PAIN 10/14/25 03:15 Acetaminophen/ Hydrocodone Bitart ([place] 5/325MG Tab) 1 tab Q6HPRN PRN PO SEVERE PAIN (7-10 PAIN SCALE) 10/14/25 04:30 Pantoprazole Sodium (Protonix) 40 mg DAILY IV 10/14/25 10:00 10/14/25 09:47 Nicardipine/ Sodium Chloride 200 ml @ 50 mls/hr Q4H IV 10/14/25 08:00 10/14/25 08:05 DC Nicardipine/ Sodium Chloride 200 ml @ 50 mls/hr Q4H IV 10/14/25 08:15 10/14/25 09:37 Heparin Sodium/ Dextrose 250 ml @ 10 mls/hr Q24H IV 10/14/25 12:00 10/14/25 12:29 Lisinopril (Zestril Tablet) 10 mg DAILY PO 10/15/25 10:00 Review of Systems Constitutional: No symptom reported Ears, Nose, & Throat: No symptom reported Eyes: No symptom reported Neurological: Dizziness Pulmonary/Respiratory: Shortness of breath Cardiovascular: Chest pain Gastrointestinal: No symptom reported Genitourinary: No symptom reported Musculoskeletal: No symptom reported Skin: No symptom reported Psychiatric: No symptom reported Endocrine: No symptom reported Hematologic/Lymphatic: No symptom reported Vital Signs Vital Signs Date Time Temp Pulse Resp B/P (MAP) Pulse Ox O2 Delivery O2 Flow Rate FiO2 10/14/25 12:30 79 15 140/75 (96) 96 10/14/25 12:00 Room Air* 0 21 10/14/25 07:00 99.3 99.3 Physical Exam General Appearance: Cooperative. Well-developed. Well-nourished. No acute distress. Pulmonary/Respiratory: Clear, bilateral breaths sounds. Cardiovascular/Chest: Regular rate and rhythm. Peripheral Pulses: 2+ Radial (R). 2+ Radial (L). 2+ Pedal (R). 2+ Pedal (L) Abdominal Exam: Normal bowel sounds. Ankle Exam: Negative ankle edema Lower extremities: Negative lower extremity edema Neuro/Mental Status: A/OX4, coherent. Thoughts/Psych: Normal thought pattern. Appropriate mood and affect. Good judgment and insight. Appearance: No acute distress. Skin Exam: Normal inspection. Normal color. Warm and dry. Labs/Diagnostic Data Labs Test 10/14/25 12:36 10/14/25 11:07 10/14/25 09:31 10/13/25 23:35 Range/Units Troponin I High Sensitivity 64 *H </=34 ng/L Prothrombin Time 11.2 9.3-11.8 sec Prothrombin Time INR 1.06 0.9-1.15 Activated Partial Thromboplast Time 26.4 24.5-34.5 SEC White Blood Count 8.0 4.4-10.8 10^3/uL Red Blood Count 5.66 H 4.0-5.20 10^6/uL Hemoglobin 15.9 12.2-16.2 g/dL Hematocrit 46.9 H 36.0-46.0 % Mean Corpuscular Volume 82.8 80.0-100.0 fL Mean Corpuscular Hemoglobin 28.0 28.0-32.0 pg Mean Corpuscular Hemoglobin Concent 33.9 32.0-36.0 g/dL Red Cell Distribution Width 15.8 H 11.8-14.3 % Platelet Count 232 140-450 10^3/uL Mean Platelet Volume 9.6 6.9-10.8 fL Neutrophils (%) (Auto) 78.6 37.0-80.0 % Lymphocytes (%) (Auto) 17.5 10.0-50.0 % Monocytes (%) (Auto) 3.5 0.0-12.0 % Eosinophils (%) (Auto) 0.0 0.0-7.0 % Basophils (%) (Auto) 0.4 0.0-2.0 % Neutrophils # (Auto) 6.3 1.6-8.6 10 ^3/uL Lymphocytes # (Auto) 1.4 0.4-5.4 10 ^3/uL Monocytes # (Auto) 0.3 0-1.3 10 ^3/uL Eosinophils # (Auto) 0 0-0.8 10 ^3/uL Basophils # (Auto) 0 0-0.2 10 ^3/uL Nucleated Red Blood Cells 0.3 % Sodium Level 142 136-145 mmol/L Potassium Level 3.7 3.5-5.1 mmol/L Chloride Level 103 98-107 mmol/L Carbon Dioxide Level 24 20-31 mmol/L Anion Gap 15 5-15 Blood Urea Nitrogen 9 9-23 mg/dL Creatinine 0.99 0.550-1.02 mg/dL Glomerular Filtration Rate Calc 63 >90 mL/min BUN/Creatinine Ratio 9.1 L 10.0-20.0 Serum Glucose 144 H 74-106 mg/dL Calcium Level 9.7 8.7-10.4 mg/dL Magnesium Level 1.9 1.6-2.6 mg/dL Total Bilirubin 0.4 0.2-1.0 mg/dL Aspartate Amino Transferase (AST) 28 13-40 U/L Alanine Aminotransferase (ALT) 17 7-40 U/L Alkaline Phosphatase 124 H 46-116 U/L B-Type Natriuretic Peptide 200.47 0-100 pg/mL Total Protein 8.2 5.7-8.2 g/dL Albumin 4.8 3.2-4.8 g/dL Lipase 37 12-53 U/L Assessment NSTEMI, rule out coronary ischemia Hypertensive emergency Rule out structural heart disease Prolonged QTc interval Obesity Plan/Recommendation We will continue with the following plan/recommendations (): * Transthoracic echocardiogram to evaluate cardiac function * Chest pain protocol * HEART score: 5 points * DORCAS score: 3 points * Aggressive blood pressure control * Single antiplatelet therapy and lipid-lowering agent * Nuclear stress test * Close cardiac surveillance Case reviewed and discussed with . Given patient's clinical presentation, comorbidities, and elevated troponin level, we will recommend for the patient undergo a nuclear stress test. Plan discussed with the patient and her family members at bedside. The patient is agreeable to undergo nuclear stress test. We will schedule the patient on 10/15/2025 at soonest availability. Thank you for allowing us to care for this patient. Please call with any questions or concerns. Critical care time spent: 44 minutes This medical document was created using an electronic medical record system with voice recognition software and computerized dictation system. Although this document has been carefully reviewed, there might still be some phonetic and typographical errors. Occasional wrong-word or ``sound-alike substitutions may have occurred due to the inherent limitations of voice recognition software. These areas are purely typographical due to imperfections of the software programs and do not reflect any compromise in the patient's medical care. Please read the chart carefully and recognize, using context, where these substitutions have occurred. Plan discussed with: Patient NYHA Physical activity limitations: NA Date of Service: Oct 14, 2025 Billing Provider: DEONDRE PALOMINO Cardiology Common Codes: 58220-[id number] INP/OBS CARE (High) Cardiology Consultation Codes: [id number] CONSULT <45MIN DEONDRE PALOMINO Oct 14, 2025 13:48
[2025-10-14 14:55] LABS: Triglycerides 45 mg/dL (< 150)
[2025-10-14 14:57] LABS: Cholesterol 185 mg/dL (< 200)
[2025-10-14 14:58] LABS: Amphetamine Screen, Urine Neg (NEGATIVE); Barbiturate Scree,Urine Neg (NEGATIVE); Benzodiazephine Screen, Urine Neg (NEGATIVE); Cannabinoid Screen, Urine Pos (NEGATIVE); Cocaine Screen, Urine Neg (NEGATIVE); Opiate Scree,Urine Neg (NEGATIVE); Phencyclidine Screen, Urine Neg (NEGATIVE)
[2025-10-14 14:58] LABS: HDL Cholesterol 62 mg/dL (40-59)
--- NOTE | 2025-10-14 15:15 | DVHPNRES ---
Progress Note Date Seen: Oct 14, 2025 Resident Creating Document: ZOHRA TARANGO RESIDENT Objective vital signs Vital Sign Date Time Temp Pulse Resp B/P (MAP) Pulse Ox O2 Delivery O2 Flow Rate FiO2 10/14/25 14:30 80 16 157/78 (104) 96 10/14/25 14:00 Room Air* 0 21 10/14/25 07:00 99.3 99.3 Total Intake and Output 10/13/25 10/13/25 10/14/25 15:00 23:00 07:00 Intake Total 125 ml Balance 125 ml medications Current Medications Medications Dose Ordered Sig/Heladio Route Start Time Stop Time Status Last Admin Dose Admin Acetaminophen 650 mg Q6HP PRN PO 10/14/25 03:15 Nitroglycerin 0.4 mg Q5MINP PRN SL 10/14/25 03:15 Acetaminophen/ Hydrocodone Bitart 1 tab Q6HPRN PRN PO 10/14/25 04:30 Pantoprazole Sodium 40 mg DAILY IV 10/14/25 10:00 10/14/25 09:47 40 MG Nicardipine/ Sodium Chloride 200 ml @ 50 mls/hr Q4H IV 10/14/25 08:15 10/14/25 09:37 75 MLS/HR Heparin Sodium/ Dextrose 250 ml @ 10 mls/hr Q24H IV 10/14/25 12:00 10/14/25 12:29 10 MLS/HR Lisinopril 10 mg DAILY PO 10/15/25 10:00 laboratory and microbiology Laboratory Tests 10/14/25 09:31 Test 10/14/25 09:31 Range/Units Serum Glucose 144 H 74-106 mg/dL ZOHRA TARANGO RESIDENT Oct 14, 2025 15:15
[2025-10-14] MEDS ORDERED: CLON-1003 PO (17:21)
[2025-10-14] MEDS ORDERED: ESCI20TA PO (17:21)
[2025-10-14] MEDS ORDERED: METO-159 PO (17:21)
[2025-10-14] MEDS ORDERED: QUET200T4 PO (17:21)
--- NOTE | 2025-10-14 18:02 | DVHPNRES ---
Progress Note Date Seen: Oct 14, 2025 Resident Creating Document: YEE CAMPUZANONIRMAL RESIDENT Medical Necessity Reason Pt with a Central, PICC or Fol: No Subjective Review of Systems Patient seen and examined with the bedside in the morning. Reported that she fell last month on her chest and has been having on and off pain in the ribcage under her breast area. She started to have nausea vomiting yesterday which was intractable she came to the hospital for further evaluation. No blood in the vomitus. On arrival to the hospital patient's blood pressure was seen to be 250 SBP following which she was started on nicardipine drip. In the morning today blood pressure controlled and nicardipine drip was turned off. Patient complained of chest pain which was squeezing in character, has a history of smoking, high blood pressure, ECG was done which showed ST depression in inferior and lateral leads with a mild ST elevation in the AVR, troponins mildly elevated at 83->80->64. Cardiology were consulted and patient was started on heparin drip Objective vital signs Vital Sign Date Time Temp Pulse Resp B/P (MAP) Pulse Ox O2 Delivery O2 Flow Rate FiO2 10/14/25 16:00 13 92 Room Air* 0 21 10/14/25 16:00 73 10/14/25 16:00 135/54 (81) 10/14/25 07:00 99.3 99.3 Total Intake and Output 10/13/25 10/13/25 10/14/25 15:00 23:00 07:00 Intake Total 250 ml Balance 250 ml medications Current Medications Medications Dose Ordered Sig/Heladio Route Start Time Stop Time Status Last Admin Dose Admin Acetaminophen 650 mg Q6HP PRN PO 10/14/25 03:15 Nitroglycerin 0.4 mg Q5MINP PRN SL 10/14/25 03:15 Acetaminophen/ Hydrocodone Bitart 1 tab Q6HPRN PRN PO 10/14/25 04:30 Pantoprazole Sodium 40 mg DAILY IV 10/14/25 10:00 10/14/25 09:47 40 MG Heparin Sodium/ Dextrose 250 ml @ 10 mls/hr Q24H IV 10/14/25 12:00 10/14/25 12:29 10 MLS/HR Lisinopril 10 mg DAILY PO 10/15/25 10:00 Examination Skin - Patients skin is warm and dry. HEENT - normocephalic, atraumatic, moist mucous membranes. Neck - full ROM, no LAD, no JVD Pulmonary - B/L clear breath sounds without any wheezing cardiovascular - regular S1,S2 heard, no added sounds, no murmurs heard. capillary refill normal <3 secs. GI -soft abdomen with mild tenderness to palpation in the epigastric area. Bowel sounds normoactive Neurological - Patient is A/O X 4 . Bilateral upper extremity strength 5/5, bilateral lower extremity strength 5/5, no facial droop, normal speech, no tremor, no sensory deficiets. laboratory and microbiology Laboratory Tests 10/14/25 09:31 Test 10/14/25 09:31 Range/Units Serum Glucose 144 H 74-106 mg/dL Problem List/Assessment/Plan Problem List/Assessment/Plan Hypertensive emergency NSTEMI ?type 1 hypertensive heart disease Intractable nausea vomiting ?Acute gastroenteritis GERD Obesity Dyslipidemia - cardiology consulted, echocardiogram pending, on heparin drip - blood pressure now in control, nicardipine drip turned off, lisinopril 10 mg daily - Protonix daily Goals of care discussed with the patient for over 19 minutes. Full code Critical care time: 51 minutes Plan discussed with Dr. Sharma Plan discussed with: Patient, Other (RN Jl) My Orders My Orders Orders - LUTHER CAMPUZANO RESIDENT Procedure Category Date Status Time Electrocardigram EKG 10/14/25 Logged 08:19 Electrocardigram EKG 10/14/25 Logged 09:39 * Cardiology Consult CONS 10/14/25 Transmitted 10:36 Platelet Monitoring [facility] 10/14/25 In Process 10:36 Heparin Per [facility] 10/14/25 In Process Standardized Proce 10:36 Discontinue All Im SHLOMO 10/14/25 In Process Injections 10:36 Heparin Drip/D5w PHA 10/14/25 In Process 100units/Ml 12:00 Stat Ekg For Chest [facility] 10/14/25 In Process Pain 10:36 Lisinopril Tablet PHA 10/15/25 In Process (Zestril Tablet) 10:00 Heparin Per Pharmacy [facility] 10/14/25 In Process Protocol 18:30 PTPTT LAB 10/14/25 Logged 18:30 Transfer Orders XFER 10/14/25 Transmitted 16:14 Visit Coding STANDARD RES Billing Provider: TERRELL SHARMA MD Date of Service if different f: Oct 14, 2025 Common Visit Codes: [id number] CARE 30-74 MIN LUTHER CAMPUZANO RESIDENT Oct 14, 2025 18:02
[2025-10-14 20:47] LABS: INR 1.08 (0.9-1.15); Prothrombin Time 11.4 sec (9.3-11.8)
[2025-10-14 21:04] LABS: Partial Thromboplastin Time 97.1 SEC (24.5-34.5)
[2025-10-14] MEDS: ACETAMINOPHEN 325 MG TAB PO PRN (21:37)
[2025-10-14] MEDS: ATORVASTATIN 20 MG TAB PO SCH (21:37)
[2025-10-15] VITALS (12 sets, daily range): BP systolic 148–245; BP diastolic 64–106; PULSE 51–115; RESP 16–97; TEMP 96.5–99.2; O2SAT 92–98
[2025-10-15 04:51] LABS: Hematocrit 41.8 % (36.0-46.0); Hemoglobin 13.9 g/dL (12.2-16.2); Mean Corpuscular Hemoglobin 28.0 pg (28.0-32.0); Mean Corpuscular Volume 84.1 fL (80.0-100.0); Nucleated Red Blood Cells % 0.3 %
[2025-10-15 05:05] LABS: INR 1.06 (0.9-1.15); Prothrombin Time 11.2 sec (9.3-11.8)
[2025-10-15 05:14] LABS: Partial Thromboplastin Time 94.2 SEC (24.5-34.5)
[2025-10-15 05:17] LABS: Alanine Aminotransferase 14 U/L (7-40); Albumin 3.8 g/dL (3.2-4.8); Alkaline Phosphatase 92 U/L (46-116); Anion Gap 10 (5-15); Bilirubin, Total 0.8 mg/dL (0.2-1.0); Calcium 8.8 mg/dL (8.7-10.4); Carbon Dioxide 24 mmol/L (20-31); Chloride 105 mmol/L (98-107); Glucose 103 mg/dL (74-106); Potassium 3.7 mmol/L (3.5-5.1); Sodium 139 mmol/L (136-145); Total Protein 7.0 g/dL (5.7-8.2)
[2025-10-15 05:28] LABS: BUN/Creatinine Ratio 5.5 (10.0-20.0); Blood Urea Nitrogen < 5 mg/dL (9-23)
[2025-10-15] MEDS: HEPARIN DRIP/D5W 100UNITS/ML 250 ML IV SCH ×2 (06:36→14:53)
[2025-10-15] MEDS: REGADENOSON 0.4 MG/5 ML SYRG IV ONE ×2 (08:43→08:52)
[2025-10-15] MEDS: ASPirin-EC 81 mg tab PO SCH (10:00)
[2025-10-15] MEDS: LISINOPRIL 5 MG TAB PO SCH (10:00)
[2025-10-15] MEDS: ONDANSETRON HCL 4 MG/2 ML VIAL IM ONE (10:09)
[2025-10-15] MEDS: hydrALAZINE HCL 20 MG/ML VL IV ONE ×2 (12:06→13:05)
[2025-10-15] MEDS: HYDROmorphone HCL 2 MG/ML VL/or syr IV PRN (12:07)
[2025-10-15 13:06] LABS: INR 1.02 (0.9-1.15); Partial Thromboplastin Time 45.6 SEC (24.5-34.5); Prothrombin Time 10.8 sec (9.3-11.8)
[2025-10-15] MEDS: METOCLOPRAMIDE HCL 5MG/ml INJ 2ml VIAL IV PRN (15:03)
--- NOTE | 2025-10-15 15:41 | CONS ---
Pharmacy Clinical Information: INCREASE HEPARIN RATE @6 ML/HR OR 600 UNITS/HR SINCE APTT = 45.6 @1224 ON 10/15 PER RX PROTOCOL. NEXT APTT NABOR @2100 TODAY 10/15 ABI CHRISTIANSON AWARE RATE INCREASED FROM 4 ML/HR TO 6 ML/HR AND REPEATED ORDER BACK EMILY QUESADA PHARMACIST Oct 15, 2025 15:41
--- NOTE | 2025-10-15 17:14 | DVHSR ---
APPROVED REPORT EXAM: Two-dimensional and M-mode echocardiogram with Doppler and color Doppler. Blood Pressure: 140/75 mmHg INDICATION nstemi RISK FACTORS Hypertension: Height: 63, Weight: 183 DIMENSIONS LVDd 4.2 (3.8-5.7cm) LA (2D) 3.7 (1.9-4.0cm) Aortic Root 2.9 (2.0-3.7cm) LVDs 2.4 (2.5-4.0cm) LA (MM) (1.9-4.0cm) Aortic Cusp Exc 1.7 (1.5-2.0cm) EF (%) 65.0 (55-70%) Rt. Atrium 3.6 (1.9-4.0cm) Asc. Aorta cm IVSd 1.1 (0.7-1.1cm) RV (D) 3.5 (1.8-2.4cm) PWd 0.9 (0.7-1.1cm) Mitral Valve Mitral Mitral Stenosis E wave 0.76m/s MV Mean GR. mmHg A wave 1.15m/s MV Peak GR. 38mmHg E/A ratio 0.7 2D MVA cm2 DECEL Time 288ms PRESS 1/2 Time ms Aortic Valve Aortic Valve Aortic Stenosis V1 1.22m/s AO Mean GR. 6mmHg V2 1.51m/s AO Peak GR. 9mmHg LVOT Diameter 2.1 (1.8-2.4cm) Doppler ROSALIND 2.80cm2 Pulmonic Valve V2 1.03m/s Tricuspid Valve TR Velocity 2.85m/s RVSP 37mmHg Other Information Quality : Technically Limited Rhythm : Conclusion LVEF is normal 60-65%. Right ventricular size and function normal Mild pulmonary hypertension 35-40 mmHg
--- NOTE | 2025-10-15 17:42 | DVHPNRES ---
Progress Note Date Seen: Oct 15, 2025 Resident Creating Document: FALLON GONZALES RESIDENT Medical Necessity Reason Pt with a Central, PICC or Fol: No Subjective Review of Systems Patient seen and examined at the bedside in the morning. Reported that she fell last month on her chest and has been having on and off pain in the ribcage under her breast area. She started to have nausea vomiting yesterday which was intractable she came to the hospital for further evaluation. No blood in the vomitus. On arrival to the hospital patient's blood pressure was seen to be 250 SBP following which she was started on nicardipine drip. In the morning today blood pressure controlled and nicardipine drip was turned off. Patient complained of chest pain which was squeezing in character, has a history of smoking, high blood pressure, ECG was done which showed ST depression in inferior and lateral leads with a mild ST elevation in the AVR, troponins mildly elevated at 83->80->64. Cardiology were consulted and patient was started on heparin drip. Past medical history: Hypertension Past surgical history: None Allergies: Penicillin causes convulsions Smokin pack a week for 50 years, actively smoking Drugs: Quit Marijuana 50 years ago. Alcohol: 1 pint every other day actively taking Patient seen and examined at bedside. Patient is alert and oriented to time, place person and responding to all questions. Eyes: No Pain, No Vision change, No Conjunctivae inflammation, No Eyelid inflammation, No Redness ENT: No Ear pain, No Ear discharge, No Nose pain, No Nose discharge, No Nose congestion, No Mouth pain, No Mouth swelling, No Throat pain, No Throat swelling Cardiovascular: No Chest Pain, No Palpitations, No Orthopnea, No Paroxysmal No Dyspnea, No Edema, No Lt Headedness Respiratory: No Cough, No Dry, No Shortness of breath, No SOB with exertion, No Wheezing, No Hemoptysis, No Pleuritic Pain, No Sputum Gastrointestinal: No Nausea, No Vomiting, No Abdominal Pain, No Diarrhea, No Constipation, No Melena, No Hematochezia Genitourinary: No Dysuria, No Frequency, No Incontinence, No Hematuria, No Retention 10/15/25- the patient was seen at bedside today. The patient underwent Cardiolite stress test today, post which she started complaining of nausea and episodes of vomiting, which she was given zofran 4 mg and started on Reglan 5 mg q.6 hour p.r.n. Objective vital signs Vital Sign Date Time Temp Pulse Resp B/P (MAP) Pulse Ox O2 Delivery O2 Flow Rate FiO2 10/15/25 17:00 99.2 115 16 174/81 (112) 95 99.2 10/15/25 12:00 Room Air* 0 21 Total Intake and Output 10/14/25 10/14/25 10/15/25 15:00 23:00 07:00 Intake Total 2667 ml 1855 ml 0 ml Balance 2667 ml 1855 ml 0 ml medications Current Medications Medications Dose Ordered Sig/Heladio Route Start Time Stop Time Status Last Admin Dose Admin Acetaminophen 650 mg Q6HP PRN PO 10/14/25 03:15 10/14/25 21:37 650 MG Nitroglycerin 0.4 mg Q5MINP PRN SL 10/14/25 03:15 Acetaminophen/ Hydrocodone Bitart 1 tab Q6HPRN PRN PO 10/14/25 04:30 Pantoprazole Sodium 40 mg DAILY IV 10/14/25 10:00 10/15/25 12:05 40 MG Lisinopril 10 mg DAILY PO 10/15/25 10:00 Hydromorphone HCl 0.5 mg Q6HPRN PRN IV 10/14/25 18:00 10/15/25 12:07 0.5 MG Aspirin 81 mg DAILY PO 10/15/25 10:00 Atorvastatin Calcium 20 mg HS PO 10/14/25 22:00 10/14/25 21:37 20 MG Metoclopramide HCl 5 mg Q6HPRN PRN IV 10/15/25 11:30 10/15/25 15:03 5 MG Heparin Sodium/ Dextrose 250 ml @ 6 mls/hr Q24H IV 10/15/25 14:00 10/15/25 14:53 6 MLS/HR Examination General Appearance: Cooperative. Well developed. Well nourished. NAD Head Exam: Normal inspection Neck Exam: Normal inspection. Non-tender. Normal alignment Pulmonary/Respiratory: Chest non-tender. Clear bilateral breath sounds, no crackles, no wheezing. Cardiovascular/Chest: Regular rate and rhythm. No murmurs. No JVD. Peripheral Pulses: 2+ Radial (R). 2+ Radial (L). 2+ Pedal (R). 2+ Pedal (L) Abdominal Exam: Normal bowel sounds. Soft. normal abdomen, no visible veins, tenderness to palpation of epigastric area. No hepatospenomegaly. No masses Ankle Exam: Negative ankle edema Lower extremities: Negative lower extremity edema Neuro/Mental Status: A&O x4. Coherent. Thoughts/Psych: Normal thought pattern. Appropriate mood and affect. Good judgement and insight Skin Exam: Normal inspection. Normal color. Warm. Dry laboratory and microbiology Laboratory Tests 10/15/25 04:15 Test 10/15/25 04:15 Range/Units Serum Glucose 103 74-106 mg/dL Microbiology Date/Time Source Procedure Growth Status 10/14/25 05:40 Nose MRSA Screen - Final Complete Labs and/or images reviewed: Labs reviewed by me, Image(s) reviewed by me Problem List/Assessment/Plan Problem List/Assessment/Plan # Hypertensive emergency # NSTEMI, type 1/ type 2 # Hypertensive heart disease # Mild pulmonary arterial hypertension - echo revealed LVEF is normal 60-65%, Right ventricular size and function normal, Mild pulmonary hypertension 35-40 mmHg - Cardiolite stress test today, pending report - nicardipine drip turned off yesterday, on lisinopril 10 mg daily - on heparin drip - aspirin 81 mg p.o. daily # Intractable nausea vomiting ?Acute gastroenteritis # GERD - Protonix 40 mg daily IV - Reglan 5 mg q.6 p.r.n. IV - gallbladder ultrasound unremarkable # Obesity -patient counseled on healthy lifestyle modifications and dietary changes to lose weight # Dyslipidemia - Protonix 20 mg hs p.o. GI prophylaxis: Pantoprazole DVT prophylaxis: Heparin drip Diet: Cardiac Goals of care discussed with the patient for over 23 minutes, full code Plan discussed with Dr. Sharma Plan discussed with: Patient, Daughter My Orders My Orders Orders - FALLON GONZALES Procedure Category Date Status Time Metoclopramide PHA 10/15/25 In Process Injection (Reglan 11:30 Cardiac DIET 10/15/25 Transmitted Diet-2gna,Lofat,Lochol Lunch Visit Coding STANDARD RES Billing Provider: TERRELL SHARMA MD Date of Service if different f: Oct 15, 2025 Common Visit Codes: [id number] INP/OBS CARE(HIGH) FALLON GONZALES RESIDENT Oct 15, 2025 17:42
[2025-10-15] MEDS: SODIUM CHLORIDE 0.9% 1,000 ML IV ONE (18:26)
[2025-10-15] MEDS: hydrALAZINE HCL 20 MG/ML VL IV PRN (21:40)
[2025-10-15] MEDS: ATORVASTATIN 20 MG TAB PO SCH (21:41)
[2025-10-15] MEDS: SODIUM CHLORIDE 0.9% 1,000 ML IV SCH (21:48)
[2025-10-16] VITALS (8 sets, daily range): BP systolic 132–181; BP diastolic 68–92; PULSE 47–86; RESP 17–20; TEMP 98–98.7; O2SAT 96–100
[2025-10-16 06:15] LABS: Chloride 103 mmol/L (98-107); Potassium 3.5 mmol/L (3.5-5.1); Sodium 138 mmol/L (136-145)
[2025-10-16 06:17] LABS: Anion Gap 11 (5-15); Calcium 8.8 mg/dL (8.7-10.4); Carbon Dioxide 24 mmol/L (20-31)
[2025-10-16 06:20] LABS: BUN/Creatinine Ratio 6.5 (10.0-20.0); Glucose 99 mg/dL (74-106)
[2025-10-16 06:23] LABS: Blood Urea Nitrogen 6 mg/dL (9-23)
[2025-10-16] MEDS: ENOXAPARIN SOD 40 MG/0.4 ML SYRINGE SC SCH (14:58)
[2025-10-16] MEDS: METOPROLOL SUCCINATE XL 50 MG TAB PO ONE (14:58)
--- NOTE | 2025-10-16 17:01 | DVHPNRES ---
Progress Note Date Seen: Oct 16, 2025 Resident Creating Document: FALLON GONZALES RESIDENT Medical Necessity Reason Pt with a Central, PICC or Fol: No Subjective Review of Systems Mahsa Millard is a 65-year old female who presented to the ED with the chief complaint of pain in the chest. She reported that she fell last month on her chest and has been having on and off pain in the ribcage under her breast area. She started to have nausea, vomiting yesterday which was intractable she came to the hospital for further evaluation. No blood in the vomitus. On arrival to the hospital patient's blood pressure was seen to be 250 SBP following which she was started on nicardipine drip. Next morning, blood pressure was controlled and nicardipine drip was turned off. Patient complained of chest pain which was squeezing in character, has a history of smoking, high blood pressure, ECG was done which showed ST depression in inferior and lateral leads with a mild ST elevation in the AVR, troponins mildly elevated at 83->80->64. Cardiology were consulted and patient was started on heparin drip. Past medical history: Hypertension Past surgical history: None Allergies: Penicillin causes convulsions Smokin pack a week for 50 years, actively smoking Drugs: Quit Marijuana 50 years ago. Alcohol: 1 pint every other day actively taking Patient seen and examined at bedside. Patient is alert and oriented to time, place person and responding to all questions. Eyes: No Pain, No Vision change, No Conjunctivae inflammation, No Eyelid inflammation, No Redness ENT: No Ear pain, No Ear discharge, No Nose pain, No Nose discharge, No Nose congestion, No Mouth pain, No Mouth swelling, No Throat pain, No Throat swelling Cardiovascular: No Chest Pain, No Palpitations, No Orthopnea, No Paroxysmal No Dyspnea, No Edema, No Lt Headedness Respiratory: No Cough, No Dry, No Shortness of breath, No SOB with exertion, No Wheezing, No Hemoptysis, No Pleuritic Pain, No Sputum Gastrointestinal: Nausea, No Vomiting, No Abdominal Pain, No Diarrhea, No Constipation, No Melena, No Hematochezia Genitourinary: No Dysuria, No Frequency, No Incontinence, No Hematuria, No Retention 10/15/25- the patient was seen at bedside today. The patient underwent Cardiolite stress test today, post which she started complaining of nausea and episodes of vomiting, which she was given zofran 4 mg and started on Reglan 5 mg q.6 hour p.r.n. Heparin drip was discontinued. 10/16/25- The patient was seen at bedside today. She has had no episodes of vomiting since yesterday evening. She continues to complain of nausea. No longer complains of chest pain. Possible discharge tomorrow if cardiolite stress test is negative for ischemia. Objective vital signs Vital Sign Date Time Temp Pulse Resp B/P (MAP) Pulse Ox O2 Delivery O2 Flow Rate FiO2 10/16/25 14:58 64 176/92 10/16/25 13:00 98.6 20 96 98.6 10/16/25 08:00 Room Air* 0 21 Total Intake and Output 10/15/25 10/15/25 10/16/25 15:00 23:00 07:00 Intake Total 1100 ml 1150 ml Balance 1100 ml 1150 ml medications Current Medications Medications Dose Ordered Sig/Heladio Route Start Time Stop Time Status Last Admin Dose Admin Acetaminophen 650 mg Q6HP PRN PO 10/14/25 03:15 10/16/25 08:50 650 MG Nitroglycerin 0.4 mg Q5MINP PRN SL 10/14/25 03:15 Acetaminophen/ Hydrocodone Bitart 1 tab Q6HPRN PRN PO 10/14/25 04:30 Pantoprazole Sodium 40 mg DAILY IV 10/14/25 10:00 10/16/25 08:49 40 MG Hydromorphone HCl 0.5 mg Q6HPRN PRN IV 10/14/25 18:00 10/15/25 12:07 0.5 MG Aspirin 81 mg DAILY PO 10/15/25 10:00 10/16/25 08:50 81 MG Metoclopramide HCl 5 mg Q6HPRN PRN IV 10/15/25 11:30 10/16/25 14:56 5 MG Sodium Chloride 1,000 ml @ 100 mls/hr Q10H IV 10/15/25 18:00 10/16/25 06:31 100 MLS/HR Atorvastatin Calcium 40 mg HS PO 10/15/25 22:00 10/15/25 21:41 40 MG Hydralazine HCl 10 mg Q2HP PRN IV 10/15/25 18:30 10/16/25 14:57 10 MG Enoxaparin Sodium 40 mg DAILY SC 10/16/25 10:00 10/16/25 14:58 40 MG Lisinopril 20 mg DAILY PO 10/17/25 10:00 UNV Nifedipine 30 mg DAILY PO 10/17/25 22:00 UNV Examination General Appearance: Cooperative. Well developed. Well nourished. NAD Head Exam: Normal inspection Neck Exam: Normal inspection. Non-tender. Normal alignment Pulmonary/Respiratory: Chest non-tender. Clear bilateral breath sounds, no crackles, no wheezing. Cardiovascular/Chest: Regular rate and rhythm. No murmurs. No JVD. Peripheral Pulses: 2+ Radial (R). 2+ Radial (L). 2+ Pedal (R). 2+ Pedal (L) Abdominal Exam: Normal bowel sounds. Soft. normal abdomen, no visible veins, tenderness to palpation of epigastric area. No hepatospenomegaly. No masses Ankle Exam: Negative ankle edema Lower extremities: Negative lower extremity edema Neuro/Mental Status: A&O x4. Coherent. Thoughts/Psych: Normal thought pattern. Appropriate mood and affect. Good judgement and insight Skin Exam: Normal inspection. Normal color. Warm. Dry laboratory and microbiology Laboratory Tests 10/16/25 05:40 10/15/25 04:15 Test 10/16/25 05:40 Range/Units Serum Glucose 99 74-106 mg/dL Microbiology Date/Time Source Procedure Growth Status 10/14/25 05:40 Nose MRSA Screen - Final Complete Labs and/or images reviewed: Labs reviewed by me, Image(s) reviewed by me Problem List/Assessment/Plan Problem List/Assessment/Plan # Hypertensive emergency # NSTEMI, type 1/ type 2 # Hypertensive heart disease # Mild pulmonary arterial hypertension - echo revealed LVEF is normal 60-65%, Right ventricular size and function normal, Mild pulmonary hypertension 35-40 mmHg - Cardiolite stress test on 10/15/25 - lisinopril 20 mg daily and nifedipine 30mg daily - aspirin 81 mg p.o. daily # Intractable nausea vomiting ?Acute gastroenteritis # GERD - Protonix 40 mg daily IV - Reglan 5 mg q.6 p.r.n. IV - gallbladder ultrasound unremarkable # Obesity -patient counseled on healthy lifestyle modifications and dietary changes to lose weight # Dyslipidemia - Protonix 20 mg hs p.o. GI prophylaxis: Pantoprazole DVT prophylaxis: lovenox 40mg sc daily Diet: Cardiac Goals of care discussed with the patient for over 23 minutes, full code Plan discussed with Dr. Davenport Plan discussed with: Patient My Orders My Orders Orders - FALLON GONZALES Procedure Category Date Status Time Enoxaparin Sodium PHA 10/16/25 In Process (Lovenox) 10:00 Visit Coding STANDARD RES Billing Provider: TERRELL DAVENPORT MD Date of Service if different f: Oct 16, 2025 Common Visit Codes: [id number] INP/OBS CARE(HIGH) FALLON GONZALES Oct 16, 2025 17:01
[2025-10-16] MEDS: LISINOPRIL 5 MG TAB PO ONE (18:34)
[2025-10-17] VITALS (11 sets, daily range): BP systolic 141–199; BP diastolic 69–98; PULSE 68–107; RESP 15–20; TEMP 97.6–98.6; O2SAT 96–100
[2025-10-17 06:59] LABS: Hematocrit 44.7 % (36.0-46.0); Hemoglobin 15.2 g/dL (12.2-16.2); Mean Corpuscular Hemoglobin 28.0 pg (28.0-32.0); Mean Corpuscular Volume 82.5 fL (80.0-100.0); Nucleated Red Blood Cells % 0.4 %
[2025-10-17 07:03] LABS: Anion Gap 11 (5-15); Carbon Dioxide 24 mmol/L (20-31); Chloride 105 mmol/L (98-107); Sodium 140 mmol/L (136-145)
[2025-10-17 07:04] LABS: Calcium 9.2 mg/dL (8.7-10.4)
[2025-10-17 07:09] LABS: BUN/Creatinine Ratio 5.8 (10.0-20.0); Glucose 86 mg/dL (74-106)
[2025-10-17 07:11] LABS: Blood Urea Nitrogen 6 mg/dL (9-23); Potassium 3.2 mmol/L (3.5-5.1)
[2025-10-17] MEDS ORDERED: POTASSIUM EFFERVESENT TAB 25 MEQ PO ONE (08:15)
[2025-10-17] MEDS ORDERED: METOPROLOL SUCCINATE XL 50 MG TAB PO SCH (10:00)
--- NOTE | 2025-10-17 10:23 | ECG ---
[facility] Test Date: 2025-10-15 Test Time: 16:09:45 Pat Name: LANNY ANN Department: Room: 0291T A Gender: F [employer]er: [id number] : 1960 Requested By: TERRELL SHARMA Order Number: [id number] Reading MD: Lyle Mijares Measurements Intervals [place] Rate: 116 P: 69 OR: 175 QRS: 31 QRSD: 89 T: 10 QT: 321 QTc: 446 Interpretive Statements Sinus tachycardia Biatrial enlargement Probable left ventricular hypertrophy Electronically Signed On 10-22-2025 18:16:14 PST by Lyle Mijares Please click the below link to view image of tracing.
[2025-10-17] MEDS: POTASSIUM CHL 20 Meq TABLET PO ONE (10:53)
[2025-10-17] MEDS: LISINOPRIL 20 MG TAB PO SCH (10:54)
[2025-10-17] MEDS ORDERED: IOHEXOL 300 MG/ML 100ML BOTTLE IJ ONE (11:23)
--- NOTE | 2025-10-17 11:36 | DVHPNRES ---
Progress Note Date Seen: Oct 17, 2025 Resident Creating Document: FALLON GONZALES RESIDENT Medical Necessity Reason Pt with a Central, PICC or Fol: No Subjective Review of Systems Mahsa Millard is a 65-year old female who presented to the ED with the chief complaint of pain in the chest. She reported that she fell last month on her chest and has been having on and off pain in the ribcage under her breast area. She started to have nausea, vomiting yesterday which was intractable she came to the hospital for further evaluation. No blood in the vomitus. On arrival to the hospital patient's blood pressure was seen to be 250 SBP following which she was started on nicardipine drip. Next morning, blood pressure was controlled and nicardipine drip was turned off. Patient complained of chest pain which was squeezing in character, has a history of smoking, high blood pressure, ECG was done which showed ST depression in inferior and lateral leads with a mild ST elevation in the AVR, troponins mildly elevated at 83->80->64. Cardiology were consulted and patient was started on heparin drip. Past medical history: Hypertension Past surgical history: None Allergies: Penicillin causes convulsions Smokin pack a week for 50 years, actively smoking Drugs: Quit Marijuana 50 years ago. Alcohol: 1 pint every other day actively taking Patient seen and examined at bedside. Patient is alert and oriented to time, place person and responding to all questions. Eyes: No Pain, No Vision change, No Conjunctivae inflammation, No Eyelid inflammation, No Redness ENT: No Ear pain, No Ear discharge, No Nose pain, No Nose discharge, No Nose congestion, No Mouth pain, No Mouth swelling, No Throat pain, No Throat swelling Cardiovascular: No Chest Pain, No Palpitations, No Orthopnea, No Paroxysmal No Dyspnea, No Edema, No Lt Headedness Respiratory: No Cough, No Dry, No Shortness of breath, No SOB with exertion, No Wheezing, No Hemoptysis, No Pleuritic Pain, No Sputum Gastrointestinal: Nausea, No Vomiting, No Abdominal Pain, No Diarrhea, No Constipation, No Melena, No Hematochezia Genitourinary: No Dysuria, No Frequency, No Incontinence, No Hematuria, No Retention 10/15/25- the patient was seen at bedside today. The patient underwent Cardiolite stress test today, post which she started complaining of nausea and episodes of vomiting, which she was given zofran 4 mg and started on Reglan 5 mg q.6 hour p.r.n. Heparin drip was discontinued. 10/16/25- The patient was seen at bedside today. She has had no episodes of vomiting since yesterday evening. She continues to complain of nausea. No longer complains of chest pain. Possible discharge tomorrow if cardiolite stress test is negative for ischemia. 10/17/25- The patient was seen at bedside today. She continues to have nausea, but no vomiting. CT abdomen/ pelvis was ordered. CT abdomen pelvis showed no acute changes, noted to have calcified uterine fibroids. The patient also complained of burning sensation while urinating, urine analysis was ordered. Cardiology mentioned that the stress test was noted to have no inducible ischemia and patient is cleared for discharge per Cardiology once her blood pressure is controlled. The patient was made to get out of bed on the chair and ambulate which she tolerated well. Objective vital signs Vital Sign Date Time Temp Pulse Resp B/P (MAP) Pulse Ox O2 Delivery O2 Flow Rate FiO2 10/17/25 10:54 191/91 10/17/25 05:00 98.5 82 17 99 98.5 10/16/25 20:00 Room Air* 0 21 Total Intake and Output 10/16/25 10/16/25 10/17/25 15:00 23:00 07:00 Intake Total 1345 ml 950 ml Output Total 1200 ml 1200 ml Balance 145 ml -250 ml medications Current Medications Medications Dose Ordered Sig/Heladio Route Start Time Stop Time Status Last Admin Dose Admin Acetaminophen 650 mg Q6HP PRN PO 10/14/25 03:15 10/16/25 18:45 650 MG Nitroglycerin 0.4 mg Q5MINP PRN SL 10/14/25 03:15 Acetaminophen/ Hydrocodone Bitart 1 tab Q6HPRN PRN PO 10/14/25 04:30 Pantoprazole Sodium 40 mg DAILY IV 10/14/25 10:00 10/17/25 10:53 40 MG Hydromorphone HCl 0.5 mg Q6HPRN PRN IV 10/14/25 18:00 10/15/25 12:07 0.5 MG Aspirin 81 mg DAILY PO 10/15/25 10:00 10/17/25 10:54 81 MG Metoclopramide HCl 5 mg Q6HPRN PRN IV 10/15/25 11:30 10/17/25 10:53 5 MG Sodium Chloride 1,000 ml @ 100 mls/hr Q10H IV 10/15/25 18:00 10/16/25 18:37 100 MLS/HR Atorvastatin Calcium 40 mg HS PO 10/15/25 22:00 10/16/25 21:29 40 MG Hydralazine HCl 10 mg Q2HP PRN IV 10/15/25 18:30 10/17/25 01:01 10 MG Enoxaparin Sodium 40 mg DAILY SC 10/16/25 10:00 10/17/25 10:53 40 MG Lisinopril 20 mg DAILY PO 10/17/25 10:00 10/17/25 10:54 20 MG Nifedipine 30 mg DAILY PO 10/17/25 22:00 Quetiapine Fumarate 800 mg QPM PO 10/17/25 18:00 Examination General Appearance: Cooperative. Well developed. Well nourished. NAD Head Exam: Normal inspection Neck Exam: Normal inspection. Non-tender. Normal alignment Pulmonary/Respiratory: Chest non-tender. Clear bilateral breath sounds, no crackles, no wheezing. Cardiovascular/Chest: Regular rate and rhythm. No murmurs. No JVD. Peripheral Pulses: 2+ Radial (R). 2+ Radial (L). 2+ Pedal (R). 2+ Pedal (L) Abdominal Exam: Normal bowel sounds. Soft. normal abdomen, no visible veins, tenderness to palpation of epigastric area and suprapubic area. No hepatospenomegaly. No masses Ankle Exam: Negative ankle edema Lower extremities: Negative lower extremity edema Neuro/Mental Status: A&O x4. Coherent. Thoughts/Psych: Normal thought pattern. Appropriate mood and affect. Good judgement and insight Skin Exam: Normal inspection. Normal color. Warm. Dry laboratory and microbiology Laboratory Tests 10/17/25 05:12 Test 10/17/25 05:12 Range/Units Serum Glucose 86 74-106 mg/dL Microbiology Date/Time Source Procedure Growth Status 10/14/25 05:40 Nose MRSA Screen - Final Complete Labs and/or images reviewed: Labs reviewed by me, Image(s) reviewed by me Problem List/Assessment/Plan Problem List/Assessment/Plan # Hypertensive emergency # NSTEMI, type 1/ type 2 # Hypertensive heart disease # Mild pulmonary arterial hypertension - echo revealed LVEF is normal 60-65%, Right ventricular size and function normal, Mild pulmonary hypertension 35-40 mmHg - Cardiolite stress test on 10/15/25 - lisinopril 20 mg daily and nifedipine 30mg daily - aspirin 81 mg p.o. daily # Intractable nausea vomiting ?Acute gastroenteritis # GERD - Protonix 40 mg daily IV - Reglan 5 mg q.6 p.r.n. IV - carafate 1gm po tid - gallbladder ultrasound unremarkable # Rule out acute UTI -ordered urine analysis # Obesity -patient counseled on healthy lifestyle modifications and dietary changes to lose weight # Dyslipidemia - Protonix 20 mg hs p.o. GI prophylaxis: Pantoprazole DVT prophylaxis: lovenox 40mg sc daily Diet: Cardiac Goals of care discussed with the patient for over 23 minutes, full code Plan discussed with Dr. Naik Plan discussed with: Patient My Orders My Orders Orders - FALLON GONZALES Procedure Category Date Status Time Urinalysis LAB 10/17/25 Logged 10:47 Visit Coding STANDARD RES Billing Provider: KEYANA NAIK MD Date of Service if different f: Oct 17, 2025 Common Visit Codes: [id number] INP/OBS CARE(HIGH) FALLON GONZALES RESIDENT Oct 17, 2025 11:36
--- NOTE | 2025-10-17 12:00 | DVH ---
CT abdomen and pelvis done with contrast INDICATION: intractable N/V, epigastric pain TECHNIQUE: Following IV administration of 80 mL of Omnipaque 300 Serial axial images were performed through the abdomen and pelvis and then reformatted in the sagittal and coronal plane. All CT scans at this medical facility are performed using dose modulation techniques as appropriate to a performed exam including the following: Automated exposure control was utilized; adjustment of the MA and/or KvP according to patient size; and use of iterative reconstruction technique. FINDINGS: Liver and spleen are normal in size without focal mass. No renal masses, stones or hydronephrosis. No masses or enlargement of the adrenal glands or pancreas. No biliary dilatation. No gallstones. No distention of bowel loops to suggest mechanical obstruction of bowel. The appendix is normal in appearance. No free fluid. Within the pelvis, bladder is smooth walled without stones. Multiple calcified fibroids of the uterine fundus. No adnexal masses. No free fluid. No hernia sac. IMPRESSION: 1. No evidence of bowel obstruction or of other acute pathology in the abdomen or pelvis. 2. Incidental note made of calcified uterine fibroids. Computed Tomographic Radiation Dosimetry Report: Total CTDI vol = 17 mGy Total DLP = 819 mGy-cm Low dose protocols were performed.
[2025-10-17] MEDS: POLYETHYLENE GLYCOL 17 GM PWDR PO ONE (13:15)
[2025-10-17] MEDS ORDERED: POLYETHYLENE GLYCOL 17 GM PWDR PO PRN (13:15)
[2025-10-17] MEDS: LISINOPRIL 20 MG TAB PO ONE (14:39)
--- NOTE | 2025-10-17 14:54 | DVHPN2 ---
Consult Progress Note Subjective Patient reports: No new complaints Objective vital signs Vital Sign Date Time Temp Pulse Resp B/P (MAP) Pulse Ox O2 Delivery O2 Flow Rate FiO2 10/17/25 14:39 166/69 10/17/25 13:30 97 10/17/25 13:00 98.6 18 100 98.6 10/17/25 08:10 Room Air* 0 21 Total Intake and Output 10/16/25 10/16/25 10/17/25 15:00 23:00 07:00 Intake Total 1345 ml 950 ml Output Total 1200 ml 1200 ml Balance 145 ml -250 ml medications Current Medications Medications Dose Ordered Sig/Heladio Route Start Time Stop Time Status Last Admin Dose Admin Acetaminophen 650 mg Q6HP PRN PO 10/14/25 03:15 10/16/25 18:45 650 MG Nitroglycerin 0.4 mg Q5MINP PRN SL 10/14/25 03:15 Acetaminophen/ Hydrocodone Bitart 1 tab Q6HPRN PRN PO 10/14/25 04:30 Pantoprazole Sodium 40 mg DAILY IV 10/14/25 10:00 10/17/25 10:53 40 MG Hydromorphone HCl 0.5 mg Q6HPRN PRN IV 10/14/25 18:00 10/15/25 12:07 0.5 MG Aspirin 81 mg DAILY PO 10/15/25 10:00 10/17/25 10:54 81 MG Metoclopramide HCl 5 mg Q6HPRN PRN IV 10/15/25 11:30 10/17/25 10:53 5 MG Sodium Chloride 1,000 ml @ 100 mls/hr Q10H IV 10/15/25 18:00 10/16/25 18:37 100 MLS/HR Atorvastatin Calcium 40 mg HS PO 10/15/25 22:00 10/16/25 21:29 40 MG Hydralazine HCl 10 mg Q2HP PRN IV 10/15/25 18:30 10/17/25 12:36 10 MG Enoxaparin Sodium 40 mg DAILY SC 10/16/25 10:00 10/17/25 10:53 40 MG Nifedipine 30 mg DAILY PO 10/17/25 22:00 Lisinopril 40 mg DAILY PO 10/18/25 10:00 Quetiapine Fumarate 600 mg QPM PO 10/17/25 18:00 Polyethylene Glycol 17 gm DAILYPRN PRN PO 10/17/25 13:15 Sennosides 8.6 mg HS PO 10/17/25 22:00 laboratory and microbiology Laboratory Tests 10/17/25 05:12 Test 10/17/25 05:12 Range/Units Serum Glucose 86 74-106 mg/dL Problem List/Assessment/Plan Problem List/Assessment/Plan NSTEMI, rule out coronary ischemia Hypertensive emergency Rule out structural heart disease Prolonged QTc interval Obesity Plan/Recommendation We will continue with the following plan/recommendations (): * Transthoracic echocardiogram with normal EF. * Chest pain protocol * HEART score: 5 points * DORCAS score: 3 points * Aggressive blood pressure control * Single antiplatelet therapy and lipid-lowering agent * Nuclear stress test * Close cardiac surveillance Case reviewed and discussed with . Given patient's clinical presentation, comorbidities, and elevated troponin level, patient s/p stress test with no inducible ischemia noted. Normal EF on echo, no significant wall motion abnormalities. Mild pulmonary hypertension with RVSP 35-40 mmHg. Likely demand ischemia in setting of hypertensive emergency. Continue medical management. No further cardiac intervention indicated at this time. Patient is stable for DC once blood pressure controlled. . Thank you for allowing us to care for this patient. Please call with any questions or concerns. Critical care time spent: 37 minutes Plan discussed with: Patient Date of Service: Oct 17, 2025 Billing Provider: RADHA BORGES Common Visit Codes: [id number] INP/OBS CARE(HIGH), [id number] CARE 30-74 MIN RADHA BORGES Oct 17, 2025 14:54
[2025-10-17] MEDS: SUCRALFATE 1 GM/10 ML ORAL SUSP PO ONE (16:53)
[2025-10-17] MEDS: CARVEDILOL 12.5 MG TAB PO ONE (16:54)
[2025-10-17] MEDS: SODIUM CHLORIDE 0.9% 250 ML IV ONE (17:01)
[2025-10-17] MEDS: SUCRALFATE 1 GM/10 ML ORAL SUSP PO SCH (21:50)
[2025-10-17] MEDS: SENNA 8.6 MG TAB PO SCH (21:51)
[2025-10-18] VITALS (8 sets, daily range): BP systolic 105–156; BP diastolic 62–90; PULSE 62–94; RESP 17–19; TEMP 36.7; O2SAT 94–98
[2025-10-18] MEDS: CARVEDILOL 3.125 MG TAB PO SCH (09:17)
[2025-10-18] MEDS: LISINOPRIL 20 MG TAB PO SCH (09:18)
[2025-10-18 12:10] LABS: Potassium 3.5 mmol/L (3.5-5.1); Sodium 142 mmol/L (136-145)
[2025-10-18 12:11] LABS: Calcium 8.6 mg/dL (8.7-10.4); Chloride 107 mmol/L (98-107)
[2025-10-18 12:12] LABS: Anion Gap 10 (5-15); Carbon Dioxide 25 mmol/L (20-31)
[2025-10-18 12:17] LABS: BUN/Creatinine Ratio 6.3 (10.0-20.0); Blood Urea Nitrogen 6 mg/dL (9-23); Glucose 93 mg/dL (74-106)
--- NOTE | 2025-10-18 16:47 | DVHDSRES ---
Discharge Summary Date of Admission Resident Creating Document: FLAQUITO COLMENARES Oct 14, 2025 at 03:01 Date of Discharge: Oct 18, 2025 Admitting Diagnosis # Hypertensive emergency Labs/Diagnostic Data: Laboratory Results Test 10/18/25 11:05 10/17/25 05:12 10/15/25 12:24 10/15/25 04:15 Sodium Level 142 mmol/L (136-145) Potassium Level 3.5 mmol/L (3.5-5.1) Chloride Level 107 mmol/L (98-107) Carbon Dioxide Level 25 mmol/L (20-31) Anion Gap 10 (5-15) Blood Urea Nitrogen 6 mg/dL (9-23) Creatinine 0.95 mg/dL (0.550-1.02) Glomerular Filtration Rate Calc 66 mL/min (>90) BUN/Creatinine Ratio 6.3 (10.0-20.0) Serum Glucose 93 mg/dL (74-106) Calcium Level 8.6 mg/dL (8.7-10.4) White Blood Count 5.3 10^3/uL (4.4-10.8) Red Blood Count 5.42 10^6/uL (4.0-5.20) Hemoglobin 15.2 g/dL (12.2-16.2) Hematocrit 44.7 % (36.0-46.0) Mean Corpuscular Volume 82.5 fL (80.0-100.0) Mean Corpuscular Hemoglobin 28.0 pg (28.0-32.0) Mean Corpuscular Hemoglobin Concent 34.0 g/dL (32.0-36.0) Red Cell Distribution Width 15.6 % (11.8-14.3) Platelet Count 228 10^3/uL (140-450) Mean Platelet Volume 10.0 fL (6.9-10.8) Neutrophils (%) (Auto) 30.2 % (37.0-80.0) Lymphocytes (%) (Auto) 55.1 % (10.0-50.0) Monocytes (%) (Auto) 12.2 % (0.0-12.0) Eosinophils (%) (Auto) 1.3 % (0.0-7.0) Basophils (%) (Auto) 1.2 % (0.0-2.0) Neutrophils # (Auto) 1.6 10 ^3/uL (1.6-8.6) Lymphocytes # (Auto) 2.9 10 ^3/uL (0.4-5.4) Monocytes # (Auto) 0.7 10 ^3/uL (0-1.3) Eosinophils # (Auto) 0.1 10 ^3/uL (0-0.8) Basophils # (Auto) 0.1 10 ^3/uL (0-0.2) Nucleated Red Blood Cells 0.4 % Prothrombin Time 10.8 sec (9.3-11.8) Prothrombin Time INR 1.02 (0.9-1.15) Activated Partial Thromboplast Time 45.6 SEC (24.5-34.5) Total Bilirubin 0.8 mg/dL (0.2-1.0) Aspartate Amino Transferase (AST) 34 U/L (13-40) Alanine Aminotransferase (ALT) 14 U/L (7-40) Alkaline Phosphatase 92 U/L (46-116) Total Protein 7.0 g/dL (5.7-8.2) Albumin 3.8 g/dL (3.2-4.8) Test 10/14/25 14:58 10/14/25 14:33 10/14/25 12:36 10/14/25 09:31 Troponin I High Sensitivity 44 ng/L (</=34) Urine Opiates Screen Neg (NEGATIVE) Urine Fentanyl Screen Neg (NEGATIVE) Urine Barbiturates Screen Neg (NEGATIVE) Urine Phencyclidine Screen Neg (NEGATIVE) Urine Amphetamines Screen Neg (NEGATIVE) Urine Benzodiazepines Screen Neg (NEGATIVE) Urine Cocaine Screen Neg (NEGATIVE) Urine Cannabinoids Screen Pos (NEGATIVE) Hemoglobin A1c 5.3 % A1C (<5.7) Triglycerides Level 45 mg/dL (< 150) Cholesterol Level 185 mg/dL (< 200) LDL Cholesterol 108 mg/dL (< 100) HDL Cholesterol 62 mg/dL (40-59) Thyroid Stimulating Hormone (TSH) 2.00 uIU/mL (0.55-4.78) Magnesium Level 1.9 mg/dL (1.6-2.6) Test 10/13/25 23:35 B-Type Natriuretic Peptide 200.47 pg/mL (0-100) Lipase 37 U/L (12-53) Other Laboratory Tests 10/18/25 11:05 10/17/25 05:12 Brief Hx & Hospital Course: Mahsa Millard is a 65-year old female who presented to the ED with the chief complaint of pain in the chest. She reported that she fell last month on her chest and has been having on and off pain in the ribcage under her breast area. She started to have nausea, vomiting yesterday which was intractable she came to the hospital for further evaluation. No blood in the vomitus. On arrival to the hospital patient's blood pressure was seen to be 250 SBP following which she was started on nicardipine drip. Next morning, blood pressure was controlled and nicardipine drip was turned off. Patient complained of chest pain which was squeezing in character, has a history of smoking, high blood pressure, ECG was done which showed ST depression in inferior and lateral leads with a mild ST elevation in the AVR, troponins mildly elevated at 83->80->64. Cardiology were consulted and patient was started on heparin drip. Past medical history: Hypertension Past surgical history: None Allergies: Penicillin causes convulsions Smokin pack a week for 50 years, actively smoking Drugs: Quit Marijuana 50 years ago. Alcohol: 1 pint every other day actively taking brief Hospital course: Patient came with chief complaints of chest pain, shortness of breath. Patient had hypertensive emergency, NSTEMI type 2, Echo revealed LVEF is normal 60-65%, Right ventricular size and function normal, Mild pulmonary hypertension 35-40 mmHg Cardiolite stress test on 10/15/25, lisinopril 20 mg daily and nifedipine 30mg daily, aspirin 81 mg p.o. daily. Patient was initially on nicardipine drip which was then discontinued. patient had intractable nausea vomiting due to acute gastroenteritis. , GERD. Cardiology mentioned that the stress test was noted to have no inducible ischemia and patient is cleared for discharge per Cardiology once her blood pressure is controlled. Patient was given Protonix, Reglan, Carafate t.i.d., gallbladder ultrasound was unremarkable.CT abdomen pelvis showed no acute changes, noted to have calcified uterine fibroids. Urinalysis was negative for UTI. Patient is obese and was counseled on healthy lifestyle modifications, diet changes for 18 minutes. Patient stable for discharge. And understands her discharge plan. General Appearance: Cooperative. Well developed. Well nourished. NAD Head Exam: Normal inspection Neck Exam: Normal inspection. Non-tender. Normal alignment Pulmonary/Respiratory: Chest non-tender. Clear bilateral breath sounds, no crackles, no wheezing. Cardiovascular/Chest: Regular rate and rhythm. No murmurs. No JVD. Peripheral Pulses: 2+ Radial (R). 2+ Radial (L). 2+ Pedal (R). 2+ Pedal (L) Abdominal Exam: Normal bowel sounds. Soft. normal abdomen, no visible veins, tenderness to palpation of epigastric area and suprapubic area. No hepatospenomegaly. No masses Ankle Exam: Negative ankle edema Lower extremities: Negative lower extremity edema Neuro/Mental Status: A&O x4. Coherent. Thoughts/Psych: Normal thought pattern. Appropriate mood and affect. Good judgement and insight Skin Exam: Normal inspection. Normal color. Warm. Dry Operations or Procedures ORDERING PHYSICIAN: SHAWN SABILLON RESIDENT PROCEDURE(s): HWOCT - HEAD WITHOUT CONTRAST REASON: Hypertensive emergency, rule out hemorrhagic stroke ORDER NUMBER(s): [id number], ACCESSION NUMBER(s): [id number] EXAM: CT HEAD WITHOUT CONTRAST INDICATION: Hypertensive emergency, rule out hemorrhagic stroke TECHNIQUE: CT of the head without intravenous contrast. Radiation Dose : 1. Head: CT Dose: CTDI volume is 61.9 mGy. Dose-length product is 868.27 mGy*cm The dose indicators for CT are the volume Computed Tomography (CT) Dose Index (CTDIvol) and the Dose Length Product (DLP), and are measured in units of mGy and mGy-cm, respectively. These indicators are not patient dose, but values generated from the CT scanner acquisition factors. The report includes radiation exposure data for exposures received during this examination. COMPARISON: None FINDINGS: There is no evidence of acute intracranial hemorrhage, extra-axial collection, mass effect, midline shift, herniation or hydrocephalus. The ventricles, sulci and cisterns are age appropriate. The orozco-white differentiation is intact. Patchy periventricular and subcortical white matter hypoattenuation is nonspecific but may be related to small vessel ischemic disease. The visualized paranasal sinuses and mastoid air cells are clear. The surrounding soft tissues and osseous structures are unremarkable. IMPRESSION: 1. No acute intracranial abnormality. Radiation optimization: All CT scans at this facility use at least one of these dose optimization techniques: automated exposure control mA and/or kV adjustment per patient size (includes targeted exams where dose is matched to clinical indication) or iterative reconstruction. ATED BY: RENNY LUJAN MD DICTATED DATE/TIME: 10/14/25357 SIGNED BY: RENNY LUJAN MD SIGNED DATE/TIME: 10/14/25357 CC: ORDERING PHYSICIAN: LUTHER CAMPUZANO PROCEDURE(s): ABPLIV - CT AB PEL WITH IV CON ONLY REASON: intractable N/V, epigastric pain ORDER NUMBER(s): [id number], ACCESSION NUMBER(s): [id number] CT abdomen and pelvis done with contrast INDICATION: intractable N/V, epigastric pain TECHNIQUE: Following IV administration of 80 mL of Omnipaque 300 Serial axial images were performed through the abdomen and pelvis and then reformatted in the sagittal and coronal plane. All CT scans at this medical facility are performed using dose modulation techniques as appropriate to a performed exam including the following: Automated exposure control was utilized; adjustment of the MA and/or KvP according to patient size; and use of iterative reconstruction technique. FINDINGS: Liver and spleen are normal in size without focal mass. No renal masses, stones or hydronephrosis. No masses or enlargement of the adrenal glands or pancreas. No biliary dilatation. No gallstones. No distention of bowel loops to suggest mechanical obstruction of bowel. The appendix is normal in appearance. No free fluid. Within the pelvis, bladder is smooth walled without stones. Multiple calcified fibroids of the uterine fundus. No adnexal masses. No free fluid. No hernia sac. IMPRESSION: 1. No evidence of bowel obstruction or of other acute pathology in the abdomen or pelvis. 2. Incidental note made of calcified uterine fibroids. Computed Tomographic Radiation Dosimetry Report: Total CTDI vol = 17 mGy Total DLP = 819 mGy-cm Low dose protocols were performed. ATED BY: DELLA THOMPSON MD DICTATED DATE/TIME: 10/17/251157 SIGNED BY: DELLA THOMPSON MD SIGNED DATE/TIME: 10/17/251157 CC: ORDERING PHYSICIAN: EDWIN COSBY MD PROCEDURE(s): ABDL - ABDOMEN LIMITED REASON: RUQ pain ORDER NUMBER(s): [id number], ACCESSION NUMBER(s): [id number] INDICATION: RUQ pain TECHNIQUE: Multiple real-time sonographic images were obtained of the right upper quadrant. COMPARISON: None FINDINGS: The liver demonstrates normal homogeneous echotexture without focal mass lesions. The liver measures 13.2 cm. Normal hepatopetal portal venous flow identified. No evidence of pleural effusion or abdominal ascites. There is no intrahepatic or extrahepatic ductal dilatation. The common duct measures 0.4 cm. The gallbladder is without evidence of stone or sludge. The gallbladder wall measures 0.2 cm and is within normal limits. Negative sonographic fitzgerald's sign. The right kidney measures 9.2 cm. The right kidney is normal in contour, size, and shape. The echogenicity is normal. There is no hydronephrosis. The pancreas is not well visualized due to overlying bowel gas. IMPRESSION: 1. No sonographic evidence of cholelithiasis or acute cholecystitis. ATED BY: RENNY LUJAN MD DICTATED DATE/TIME: 10/14/25223 SIGNED BY: RENNY LUJAN MD SIGNED DATE/TIME: 10/14/25223 CC: Condition at Discharge: Stable Final Diagnosis/Problems List # Hypertensive emergency # NSTEMI, type 1/ type 2 # Hypertensive heart disease # Mild pulmonary arterial hypertension # Intractable nausea vomiting ?Acute gastroenteritis # GERD # Rule out acute UTI # Obesity BMI 36 # Dyslipidemia Discharge Disposition: Home Discharge Instruct/Medications Scheduled Clonazepam (Klonopin), 2 MG PO DAILY, (Reported) Escitalopram Oxalate (Lexapro), 20 MG PO DAILY, (Reported) Hydrocodone-Acetaminophen (Hydrocodone Bitartrate/AC 10-325 mg), 1 TAB PO BID Metoprolol Tartrate (Metoprolol Tartrate), 100 MG PO DAILY, (Reported) Quetiapine Fumerate (Seroquel Xr), 600 MG PO DAILY, (Reported) Discharge Statement: "Patient was advised to return to the ER or call 911 if any headaches, dizziness, shortness of breath, chest pain, abdominal pain, bleeding, fevers, or worsening of medical condition. Patient was counseled about treatment plan, medications, possible side effects, patientverbalized understanding. All questions were answered to the best of my ability. This discharge took greater then 30 minutes in planning, reviewing documentation, counseling the patient, and discussing with other team members." ASSESSMENT ASSESSMENT Assessment Visit Coding STANDARD RES Billing Provider: KEYANA REGAN MD Date of Service if different f: Oct 18, 2025 Common Visit Codes: 89329-LKP/OBS DISCH DAY >30min FLAQUITO COLMENARES RESIDENT Oct 18, 2025 16:47
[2025-10-18] MEDS ORDERED: CARV-214 PO (18:26)
[2025-10-18] MEDS ORDERED: ASPI-543 PO (18:26)
[2025-10-18] MEDS ORDERED: LISI20TA56 PO (18:26)
[2025-10-18] MEDS ORDERED: PANT40T PO (18:27)
[2025-10-18] MEDS ORDERED: NIFE1TAB31 PO (18:27)
[2025-10-18] MEDS ORDERED: ATOR40TA52 PO (18:27)
[2025-10-18] MEDS ORDERED: SUCR1SUS26 PO (18:27)
--- NOTE | 2025-10-19 09:30 | DVHSR ---
APPROVED REPORT Exam: Nuclear Stress Test BMI: 0 Stress Test Details Stress Test: Pharmacologic stress testing performed using 0.4 mg of regadenoson per 5 mL given IV over 10 seconds. HR Resting HR: 59 bpm Max Heart Rate (APMHR): 153.545951 bpm Max HR Achieved: 103 bpm Target HR (85% APMHR): 130.606751 bpm % of APMHR: 67.32 Recovery HR: 66 bpm BP Resting BP: 148/96 mmHg Recovery BP: 150/99 mmHg ECG Resting ECG: Sinus Bradycardia Clinical Reason for Termination: Completed protocol Nurse Comments Recieved pt. from [facility]. A/Ox4 on RA. Connected to monitoring specialist, VS stable. PIV flushes well. Reviewed POC. Pt. verbalized understanding of procedure including risks and side effects, agrees for stress testing. Lexiscan stress test performed per protocol. [facility] tech administered Cardiolite. Pt. tolerated well. Pt. stable, no change on exam. VS returned to baseline. Transferred to [facility] via wheelchair w/ tech. Stress ECG Conclusion lvef 59% diffuse st depression on stress portion with isolated PVCs poor quality study, suboptimal sensitivity no major ischemia noted inferior wall fixed defect, artifact noted NM EXAM: Myocardial Perfusion REST/STRESS Imaging Protocol: Rest Tc-99m/Stress Tc-99m 1 day Resting Data Rest SPECT myocardial perfusion imaging was performed in supine position 60 minutes following the intravenous injection of 8.0 mCi of Tc-99m Sestamibi. Time of rest injection: 07:40 Date: 10/15/2025 Time of rest imagin:40 Date: 10/15/2025 Administration Route: IV Administration Site: Right Arm Pharmacologic Stress Pharmacologic stress test was performed by injecting Regadenoson 0.4 mg IV push followed by the intravenous injection of 29.5 mCi of Tc-99m Sestamibi. Time of stress injection: 08:54 Date: 10/15/2025 Time of stress imagin:54 Date: 10/15/2025 Administration Route: IV Administration Site: Right Arm Gated Stress SPECT was performed 60 minutes after stress injection. The images were gated to evaluate regional wall motion and calculate left ventricular ejection fraction. Stress only was performed in the Supine position. Nuclear Conclusion Nuclear Findings: negative for ischemia lvef 59% diffuse st depression on stress portion with isolated PVCs poor quality study, suboptimal sensitivity no major ischemia noted inferior wall fixed defect, artifact noted
== END 2025-10-18 20:20 | disposition home or self-care (01) | DRG 281 ==
LOC: ER 23:11 → EDBD 23:11 → OVERFLOW 10-14 03:01 → ICU WEST 10-14 05:28 → TELE-WESTW 10-15 00:20
PROVIDERS: ADMIT Student in an Organized Health Care Education/Training Program; ATTEND Student in an Organized Health Care Education/Training Program
DX: I16.1 Hypertensive emergency (principal); N39.0 Urinary tract infection, site not specified; I21.A1 Myocardial infarction type 2; Z66 Do not resuscitate; I27.21 Secondary pulmonary arterial hypertension; E66.9 Obesity, unspecified; I11.9 Hypertensive heart disease without heart failure; K52.9 Noninfective gastroenteritis and colitis, unspecified; K21.9 Gastro-esophageal reflux disease without esophagitis; D25.9 Leiomyoma of uterus, unspecified; Z68.32 Body mass index [BMI] 32.0-32.9, adult; F41.9 Anxiety disorder, unspecified; F17.210 Nicotine dependence, cigarettes, uncomplicated; E78.5 Hyperlipidemia, unspecified; Z71.3 Dietary counseling and surveillance; Z79.899 Other long term (current) drug therapy; Z88.0 Allergy status to penicillin
CPT/HCPCS: 36415; 70450; 71045; 74177; 76705; 78452; 80048; 80053; 80061; 80307; 83036; 83690; 83735; 83880; 84443; 84484; 85025; 85610; 85730; 87081; 93005; 93017; 93306; 99291; G0378; J2003; J2405; J2470

== ENCOUNTER 2025-11-07 22:59 | Emergency (ER) | payer MEDICARE, MEDICAID ==
[~2025-11-07] VITALS: Ht 170.2 cm; Wt 100.0 kg
[~2025-11-07 22:59] MED LIST changes: +ASPI-543 PO; +ATOR40TA52 PO; +CARV-214 PO; +CLON-1003 PO; +ESCI20TA PO; +LISI20TA56 PO; +NIFE1TAB31 PO; +PANT40T PO; +QUET200T4 PO; +SUCR1SUS26 PO
[2025-11-07 23:00] VITALS: BP 152/108; PULSE 95; RESP 20; TEMP 98; O2SAT 99
== END 2025-11-07 23:05 | disposition left against medical advice (07) ==
LOC: ER 22:59
DX: I10 Essential (primary) hypertension (principal); Z53.21 Procedure and treatment not carried out due to patient leaving prior to being seen by health care provider